=== PATIENT | male | born 1935 | race Asian ===

== ENCOUNTER 2018-07-25 05:37 | Inpatient (IN) | payer OTHER ==
[~2018-07-25] VITALS: Ht 162.6 cm; Wt 49.9 kg
[~2018-07-25 05:37] MED LIST: [UNRECOGNIZED DRUG - REMARK]
--- NOTE | 2018-07-25 05:37 | NUR ---
Patient BIBA ACLS, transferred to bed 4. RN evaluating patient at bedside.
[2018-07-25] MEDS ORDERED: NACL 0.9% 500 ML IV SCH (05:38)
[2018-07-25 05:39] VITALS: BP 149/64
--- NOTE | 2018-07-25 05:40 | NUR ---
PT BIBA FOR SOB. PT SON REPORTS SOB AND COUGH X3 MONTHS. [facility] GAVE DUO NEB ON ROUTE, PT ON 6 LITTERS O2 VIA MASK. DEEP RESPIRATIONS WITH USE OF ACCESSORY MUSCLES, EXPIRATORY WHEEZES AUDIBLE THROUGHOUT. PT DENIES CP, N/V/D, FEVER, OR PAIN AT THIS TIME. VSS. PT AAOX4 AND COOPERATIVE. ER MD TO SEE PT. WILL CONTINUE TO MONITOR. MEDHX:HTN
--- NOTE | 2018-07-25 05:47 | NUR ---
Dr. Dang evaluating patient at bedside.
--- NOTE | 2018-07-25 06:11 | NUR ---
XRAY AT BEDSIDE
[2018-07-25] MEDS ORDERED: MAG SULF 2000 MG/WATER PREMIX 50 ML IV ONE (06:15)
[2018-07-25] MEDS ORDERED: methylPREDNISolone SS 125 MG/2 ML VIAL IVP ONE (06:15)
[2018-07-25 06:26] LABS: BASOPHILS # (AUTO) 0.1 K/uL (0.00-0.22); BASOPHILS % (AUTO) 0.7 % (0.0-2.0); EOSINOPHILS # (AUTO) 2.1 K/uL (0-0.4); EOSINOPHILS % (AUTO) 18.2 % (0.0-4.0); HEMATOCRIT 45.8 % (36-52); HEMOGLOBIN 15.1 g/dL (12.0-18.0); LYMPHOCYTES # (AUTO) 3.5 K/uL (2.0-11.5); LYMPHOCYTES % (AUTO) 30.7 % (20.5-51.1); MEAN CORPUSCULAR HEMOGLOBIN 32 pg (27-31); MEAN CORPUSCULAR HGB CONC 33 g/dL (33-37); MEAN CORPUSCULAR VOLUME 97.9 fL (80-94); MONOCYTES # (AUTO) 1.3 K/uL (0.8-1.0); NEUTROPHILS # (AUTO) 4.5 K/uL (1.8-7.7); NEUTROPHILS % (AUTO) 39.4 % (42.2-75.2); PLATELET COUNT (AUTO) 315 K/uL (140-450); RED BLOOD CELL COUNT(AUTO) 4.68 MIL/uL (4.20-6.10); RED CELL DISTRIBUTION WIDTH 12.8 % (11.6-13.7); WHITE BLOOD COUNT (AUTO) 11.5 K/uL (4.8-10.8)
[2018-07-25 06:33] LABS: APPEARANCE,URINE CLEAR (CLEAR); BILIRUBIN,URINE NEGATIVE (NEGATIVE); BLOOD, URINE NEGATIVE (NEGATIVE); COLOR,URINE YELLOW (YELLOW); LEUKOCYTE ESTERASE ,URINE NEGATIVE (NEGATIVE); NITRITE, URINE NEGATIVE (NEGATIVE); UGLUCOSE NEGATIVE (NEGATIVE)
[2018-07-25 06:37] LABS: ANION GAP 8.1 (8-16); CARBON DIOXIDE 31.6 mmol/L (21-32); CHLORIDE 97 mmol/L (98-107); CREATININE 1.2 mg/dL (0.7-1.3); GLUCOSE 105 mg/dL (74-106); POTASSIUM 4.7 mmol/L (3.5-5.1); SODIUM SERUM 132 mmol/L (136-145); UREA NITROGEN, BLOOD 15 mg/dL (7-18)
[2018-07-25 06:39] LABS: PROTHROMBIN TIME 9.3 secs (10.8-13.4)
[2018-07-25] MEDS ORDERED: PIPERACILLIN/TAZOBACTAM 3.375 GM in DEXTROSE 5% 50 ML IV ONE (06:40)
[2018-07-25 06:43] LABS: ALBUMIN 4.1 g/dL (3.4-5.0); ASPARTATE AMINOTRANSFERASE 18 U/L (15-37); TOTAL BILIRUBIN 0.4 mg/dL (0.0-1.0)
--- NOTE | 2018-07-25 06:44 | NUR ---
PT O2 SAT AT 100% ON 6L VIA FACE MASK, NO ACCESORY MUSCLE USE WITH BREATHING, PT STILL HAS EXPIRATORY WHEEZES. TITRATING PT DOWN TO 4L O2 VIA NASAL CANULA, WILL CONTINUE TO MONITOR.
[2018-07-25] MEDS ORDERED: ALBUTEROL SULFATE/IPRATROPIU 3 ML SOL IH ONE (06:45)
--- NOTE | 2018-07-25 06:49 | NUR ---
Breathing treatment administered at bedside by respiratory therapist.
[2018-07-25] MEDS ORDERED: GABA100C PO (06:52)
[2018-07-25] MEDS ORDERED: PIPERACILLIN/TAZOBACTAM 3.375 GM VIAL IV ONE (06:52)
[2018-07-25] MEDS ORDERED: MECL-272 PO (06:52)
--- NOTE | 2018-07-25 06:55 | NUR ---
INSERTED 24 G IV ON PT L HAND TO INFUSE ZOSYN.
[2018-07-25 06:56] LABS: RBC,URINE 0-5 /HPF (0-5); WBC,URINE 0-5 /HPF (0-5)
--- NOTE | 2018-07-25 06:58 | NUR ---
FAMILY AT BEDSIDE. ORDERED BREATHING TREATMENT ADMINISTERED. TOLERATED TX WELL, NO ADVERSE SIDE EFFECTS. WILL CONTINUE TO MONITOR.
[2018-07-25] MEDS ORDERED: ACETAMINOPHEN 325 MG TAB PO PRN (07:00)
[2018-07-25] MEDS ORDERED: HYDROcodone/APAP 7.5/325 MG 1 TAB PO PRN (07:00)
[2018-07-25] MEDS ORDERED: ONDANSETRON 4 MG/2 ML VIAL IVP PRN (07:00)
--- NOTE | 2018-07-25 07:10 | NUR ---
recieved report from colt vieyra rn
--- NOTE | 2018-07-25 07:20 | NUR ---
PT TAKEN TO TELE FLOOR BY SUSHMA HUGO AND EMT LEE
--- NOTE | 2018-07-25 07:25 | NUR ---
Patient will be admitted to care of DR. YATES. Admited to TELE. Will go to room 110B. Belongings list completed. Report to SUSHMA MCGRATH.
[2018-07-25 07:30] VITALS: BP 124/61
--- NOTE | 2018-07-25 07:30 | NUR ---
RECEIVED BEDSIDE REPORT FROM ED RN. PT IN STABLE CONDITION. AMBULATORY WITHOUT ASSIST. DENIES PAIN AND DISCOMFORT. NO S/S DISTRESS. NO SOB. RESPIRATIONS EVEN AND UNLABORED. SATURATING 91% ON 2L NC. COARSE LUNG SOUNDS BILATERALLY. HEART RHYTHM REGULAR. ACTIVE BS IN ALL QUADRANTS. ABDOMEN SOFT AND NON-DISTENDED. SKIN INTACT. IV SITES PATENT AND ASYMPTOMATIC, INFUSING MAG RIDER NOW, WILL START ON IVF ORDERED. ALL SAFETY PRECAUTIONS IN PLACE, WILL CONTINUE TO MONITOR.
[2018-07-25 08:01] LABS: CHOL/HDL RATIO 2.6 (1-4.5); FREE T4 (FREE THYROXINE) 0.95 ng/dL (0.76-1.46); MAGNESIUM 1.8 mg/dL (1.8-2.4); PHOSPHORUS 3.8 mg/dL (2.5-4.9)
[2018-07-25] MEDS: NACL 0.9% 1,000 ML IV SCH (08:28)
[2018-07-25] MEDS: PANTOPRAZOLE 40 MG INJ VIAL IVP SCH (08:28)
[2018-07-25] MEDS: DOCUSATE SODIUM 100 MG GELCAP PO SCH ×2 (08:29→20:59)
[2018-07-25 09:36] LABS: THYROID STIMULATING HORMONE 2.74 uIU/mL (0.34-3.74)
--- NOTE | 2018-07-25 10:01 | NUR ---
CALLED AND LEFT MESSAGE FOR SON TO CALL ME BACK FOR ADMISSION QUESTIONS.
--- NOTE | 2018-07-25 10:36 | NUR ---
ASKED DR. GUZMAN FOR DIET ORDER.
[2018-07-25] MEDS ORDERED: ALBUTEROL SULFATE/IPRATROPIU 3 ML SOL IH PRN (10:55)
[2018-07-25] MEDS ORDERED: OMEP20TC12 PO (11:06)
[2018-07-25] MEDS ORDERED: CETI-32 PO (11:06)
[2018-07-25] MEDS ORDERED: ATEN50TA8 PO (11:06)
[2018-07-25] MEDS ORDERED: SIMV20TA1 PO (11:06)
--- NOTE | 2018-07-25 11:41 | NUR ---
PT RESTING IN BED, EYE OPEN SPONTANEOUSLY. NO C/O PAIN OR DISCOMFORT. WILL CONTINUE TO MONITOR.
[2018-07-25 12:00] VITALS: BP 119/59
[2018-07-25] MEDS ORDERED: PIPER/TAZO 3.375GM/D5W PREMIX 50 ML IV SCH (12:00)
[2018-07-25] MEDS: methylPREDNISolone SS 125 MG/2 ML VIAL IVP SCH ×2 (12:18→20:59)
[2018-07-25] MEDS: GABAPENTIN 100 MG CAP PO SCH ×2 (12:18→17:13)
[2018-07-25] MEDS: PIPER/TAZO 2.25GM/D5W PREMIX 50 ML IV SCH ×2 (12:18→17:13)
[2018-07-25] MEDS: ALBUTEROL SULFATE/IPRATROPIU 3 ML SOL IH SCH ×2 (13:04→19:25)
--- NOTE | 2018-07-25 13:21 | NUR ---
PATIENT ON 2L NC, PULSE OX SAT 95%. SCHEDULED BREATHING TREATMENT ADMINISTERED. TOLERATED TX WELL, NO ADVERSE SIDE EFFECTS. I.S. INSTRUCTION GIVEN TO PATIENT. PATIENT PERFORMED RETURN DEMONSTRATION WITH FAIR EFFORT. SPUTUM SPECIMEN CUP LEFT AT BEDSIDE. INSTRUCTED PATIENT TO SPONTANEOUSLY EXPECTORATE INTO CUP. NO RESPIRATORY DISTRESS NOTED. RETURNED PATIENT TO 2L NC. WILL CONTINUE TO MONITOR.
--- NOTE | 2018-07-25 13:44 | NUR ---
UTILIZED SLEEVE TURNER SERVICES #[id number] TO EXPLAIN SPUTUM SAMPLE COLLECTION TO PATIENT. PT VERBALIZED UNDERSTANDING. ATTEMPTED TO OBTAIN ADMISSION ASSESSMENT VIA SLEEVE TURNER SERVICES, HOWEVER PER SLEEVE TURNER #[id number], PT IS HARD OF HEARING AND CANNOT HEAR SLEEVE TURNER WELL ON THE PHONE. WILL CALL FAMILY MEMBER FOR ADMISSION ASSESSMENT.
--- NOTE | 2018-07-25 14:24 | NUR ---
ATTEMPTED TO REACH SON AGAIN VIA PHONE- NO ONE PICKED UP. LEFT ANOTHER MESSAGE FOR SON TO CALL ME BACK.
--- NOTE | 2018-07-25 15:16 | NUR ---
CALLED SON - NO ANSWER. WILL CONTINUE TO TRY TO REACH SON. Addendum: 07/25/18 at 1516 by Lexy Jamison Meng, RN REGARDING ADMISSION ASSESSMENT.
--- NOTE | 2018-07-25 15:59 | NUR ---
CALLED SON AT [phone]- NO ANSWER.
[2018-07-25 16:00] VITALS: BP 104/54
--- NOTE | 2018-07-25 17:55 | NUR ---
OBTAINED ADMISSION ASSESSMENT FROM SON NO AT BEDSIDE.
--- NOTE | 2018-07-25 19:28 | NUR ---
ENDORSED POC TO SERVICE SUPPORT REPRESENTATIVE RN. PT IN STABLE CONDITION.
--- NOTE | 2018-07-25 19:30 | NUR ---
RECEIVED PT IN STABLE CONDITION FROM AM NURSE. AWAKE,ALERT AND ORIENTED , SPEAKS CROATIAN. WITH NO SOB NOTED. ON O2 1L/NC. RESPIRATION EVEN AND UNLABORED. HAS IVF INFUSING WELL ON THE LT WRIST G#24. ,HL ON RT AC#20. NO C/O ANY PAIN NOR DISCOMFORT NOTED. WILL CONTINUE TO MONITOR.
[2018-07-25 19:45] VITALS: BP 115/54
--- NOTE | 2018-07-25 20:00 | NUR ---
PT O2 SAT AFTER THE BREATHING TREATMENT AND RT CHANGED O2 TO 2 L/NC. O2 SAT 96%.
[2018-07-25] MEDS: SIMVASTATIN 20 MG TAB PO SCH (21:00)
[2018-07-25] MEDS ORDERED: PNEUMOCOCCAL VACCINE 23 MCG/0.5 ML VIAL IMVAC PRN (22:00)
[2018-07-25] MEDS ORDERED: INFLUENZA VIRUS VACCINE QUAD 0.5 ML SYR IMVAC PRN (22:00)
--- NOTE | 2018-07-25 22:00 | NUR ---
MADE ROUNDS. PT ASLEEP NO S/S OF ANY DISTRESS NOR SOB NOTED.
[2018-07-26] VITALS (7 sets, daily range): BP systolic 94–119; BP diastolic 46–57
[2018-07-26] MEDS: PIPER/TAZO 2.25GM/D5W PREMIX 50 ML IV SCH ×5 (00:02→23:37)
--- NOTE | 2018-07-26 00:08 | NUR ---
AWAKE. VITAL SIGNS TAKEN. O2 SAT 94% WITH O2 2/NC. NO C/O ANY DISCOMFORT NOTED. WILL CONTINUE TO MONITOR.
--- NOTE | 2018-07-26 02:30 | NUR ---
MADE ROUNDS. PT AWAKE. NO C/O ANY DISCOMFORT NOR PAIN . NO SOB NOTED . WILL CONTINUE TO MONITOR.
[2018-07-26] MEDS: NACL 0.9% 1,000 ML IV SCH ×4 (03:00→23:33)
[2018-07-26] MEDS: methylPREDNISolone SS 125 MG/2 ML VIAL IVP SCH ×3 (04:33→20:28)
--- NOTE | 2018-07-26 05:06 | NUR ---
SPUTUM SPECIMEN COLLECTED FOR CULTURE. WILL SEND TO LAB.
--- NOTE | 2018-07-26 06:48 | NUR ---
PATIENT HAS BEEN SCREENED AND CATEGORIZED MODERATE NUTRITION RISK. PATIENT WILL BE SEEN WITHIN 3-5 DAYS OF ADMISSION. 07/28/18-07/30/18 JESUS MYLES MS, RDN
[2018-07-26 06:50] LABS: HEMATOCRIT 40.2 % (36-52); HEMOGLOBIN 13.3 g/dL (12.0-18.0); MEAN CORPUSCULAR HEMOGLOBIN 32 pg (27-31); MEAN CORPUSCULAR HGB CONC 33 g/dL (33-37); MEAN CORPUSCULAR VOLUME 97.8 fL (80-94); PLATELET COUNT (AUTO) 249 K/uL (140-450); RED BLOOD CELL COUNT(AUTO) 4.11 MIL/uL (4.20-6.10); RED CELL DISTRIBUTION WIDTH 12.8 % (11.6-13.7); WHITE BLOOD COUNT (AUTO) 13.7 K/uL (4.8-10.8)
[2018-07-26 07:06] LABS: ANION GAP 15.2 (8-16); CARBON DIOXIDE 23.2 mmol/L (21-32); CHLORIDE 97 mmol/L (98-107); CREATININE 1.3 mg/dL (0.7-1.3); GLUCOSE 137 mg/dL (74-106); POTASSIUM 4.4 mmol/L (3.5-5.1); SODIUM SERUM 131 mmol/L (136-145); UREA NITROGEN, BLOOD 25 mg/dL (7-18)
[2018-07-26 07:17] LABS: MAGNESIUM 1.9 mg/dL (1.8-2.4); PHOSPHORUS 3.3 mg/dL (2.5-4.9)
[2018-07-26] MEDS: ALBUTEROL SULFATE/IPRATROPIU 3 ML SOL IH SCH ×3 (07:17→19:10)
--- NOTE | 2018-07-26 07:20 | NUR ---
ENDORSED PT IN STABLE CONDITION TO AM NURSE.
--- NOTE | 2018-07-26 07:22 | NUR ---
RECEIVED BEDSIDE REPORT FROM CLEANING AND WASHING EQUIPMENT OPERATOR RN. PT IN STABLE CONDITION. AOX4. VITALS STABLE. AMBULATORY WITHOUT ASSIST. DENIES PAIN AND DISCOMFORT. NO S/S DISTRESS. NO SOB. RESPIRATIONS EVEN AND UNLABORED. HEART RHYTHM REGULAR. ACTIVE BS IN ALL QUADRANTS. ABDOMEN FLAT AND NON-DISTENDED. SKIN INTACT. IV SITES PATENT AND ASYMPTOMATIC, INFUSING IVF PER MD ORDERS. ALL SAFETY PRECAUTIONS IN PLACE, WILL CONTINUE TO MONITOR.
[2018-07-26 08:06] LABS: BASOPHILS % (MANUAL) 0 % (0-2); EOSINOPHILS % (MANUAL) 0 % (0-4); LYMPHOCYTES % (MANUAL) 10 % (20-46); MONOCYTES % (MANUAL) 2 % (5-12)
[2018-07-26] MEDS: PANTOPRAZOLE 40 MG INJ VIAL IVP SCH (08:12)
[2018-07-26] MEDS: GABAPENTIN 100 MG CAP PO SCH ×3 (08:13→16:48)
[2018-07-26] MEDS: MECLIZINE 25 MG TAB PO SCH (08:13)
[2018-07-26] MEDS: DOCUSATE SODIUM 100 MG GELCAP PO SCH ×2 (08:13→20:31)
[2018-07-26] MEDS: ATENOLOL 50 MG TAB PO SCH (08:13)
--- NOTE | 2018-07-26 10:29 | NUR ---
DISCUSSED POC WITH FAMILY MEMBER AT BEDSIDE. ANSWERED ALL QUESTIONS. FAMILY MEMBER VERBALIZED COMPLETE UNDERSTANDING. PATIENT STATES HE FEELS "MUCH BETTER".
--- NOTE | 2018-07-26 12:44 | NUR ---
PATIENT RESTING IN BED. NO C/O PAIN OR DISCOMFORT. INTERMITTENT COUGHING NOTED. NO SPUTUM.
[2018-07-26] MEDS ORDERED: DEXTROSE 50% 50 ML SYR IVP PRN (16:05)
[2018-07-26] MEDS: BLOOD GLUCOSE MONITORING 1 DEV DEV FS SCH ×2 (16:46→20:42)
[2018-07-26] MEDS: INSULIN LISPRO SLIDING SCALE 100 UNITS/ML VIAL SUBQ PRN ×2 (16:48→20:45)
--- NOTE | 2018-07-26 19:21 | NUR ---
RECEIVED PATIENT ON 1L NC. PULSE OX SAT 92%. SCHEDULED BREATHING TREATMENT ADMINISTERED. TOLERATED TX WELL, NO ADVERSE SIDE EFFECTS. PLACED PATIENT BACK ON NASAL CANNULA AT 1L. NO RESPIRATORY DISTRESS NOTED AT THIS TIME. WILL CONTINUE TO MONITOR.
--- NOTE | 2018-07-26 19:21 | NUR ---
ENDORSED POC TO GAMEROOM TECHNICIAN RN. PT IN STABLE CONDITION.
--- NOTE | 2018-07-26 19:25 | NUR ---
RECEIVED PT IN STABLE CONDITION FROM AM NURSE. PT IS AWAKE,ALERT AND ORIENTED X4. SPEAKS BOLIVIAN. ON TELE MONITOR. AMBULATORY TO THE BATHROOM. SKIN INTACT. WITH IVF INFUSING WELL ON THE LT WRIST G#24. HAS HL ON THE RT AC G20 CLEAR AND PATENT. BED ON LOWEST POSITION. CALL LIGHT AND URINAL PLACED WITHIN EASY REACH. FREQUENT ROUNDS NEEDED. NO C/O ANY PAIN AT THIS TIME. WILL CONTINUE TO MONITOR.
--- NOTE | 2018-07-26 20:00 | NUR ---
PT TELE MONITOR UNCONTROLLED AFIB. DR. MORGAN MADE AWARE. SEEN BY RESIDENT. WILL MAKE SOME ORDERS.
--- NOTE | 2018-07-26 20:30 | NUR ---
EKG DONE AT BEDSIDE. DR. MORGAN CAME TO SEE PT. C/O SOME DISCOMFORT ON THE CHEST. DR. MORGAN SAID TO GIVE NORCO.
[2018-07-26] MEDS: SIMVASTATIN 20 MG TAB PO SCH (20:32)
--- NOTE | 2018-07-26 21:05 | NUR ---
DUE TO C/O CHEST DISCOMFORT, TROPONIN DONE. RESULT IS NORMAL. WILL STILL CONTINUE TO MONITOR.
--- NOTE | 2018-07-26 21:15 | NUR ---
IVF NS CHANGED TO 80 ML/HR ORDERED.
--- NOTE | 2018-07-26 22:00 | NUR ---
MADE ROUNDS. PT IS ASLEEP. NO S/S OF ANY DISTRESS NOTED. WILL CONTINUE TO MONITOR.
--- NOTE | 2018-07-27 00:45 | NUR ---
DR. MORGAN ,RESIDENT HERE IN THE STATION. ASKED ABOUT PT BP 94/50. HE SAID TO INCREASE THE IVF NS TO 100ML/HR.
--- NOTE | 2018-07-27 02:00 | NUR ---
MADE ROUNDS. PT ASLEEP. NO DISTRESS NOTED.
[2018-07-27 04:37] VITALS: BP 94/58
[2018-07-27] MEDS: methylPREDNISolone SS 125 MG/2 ML VIAL IVP SCH (04:39)
[2018-07-27] MEDS: PIPER/TAZO 2.25GM/D5W PREMIX 50 ML IV SCH ×4 (05:37→23:25)
[2018-07-27] MEDS: BLOOD GLUCOSE MONITORING 1 DEV DEV FS SCH ×4 (05:40→20:58)
--- NOTE | 2018-07-27 05:58 | NUR ---
BLOOD SUGAR THIS AM RESULT 132. NO INSULIN NEEDED.
[2018-07-27 07:15] LABS: BASOPHILS % (AUTO) 0.1 % (0.0-2.0); LYMPHOCYTES # (AUTO) 1.1 K/uL (2.0-11.5); MEAN CORPUSCULAR HEMOGLOBIN 32 pg (27-31); MEAN CORPUSCULAR HGB CONC 33 g/dL (33-37); MEAN CORPUSCULAR VOLUME 96.6 fL (80-94); MONOCYTES # (AUTO) 0.9 K/uL (0.8-1.0); MONOCYTES % (AUTO) 4.5 % (1.7-9.3); NEUTROPHILS # (AUTO) 17.1 K/uL (1.8-7.7); NEUTROPHILS % (AUTO) 89.4 % (42.2-75.2); PLATELET COUNT (AUTO) 282 K/uL (140-450); RED BLOOD CELL COUNT(AUTO) 3.73 MIL/uL (4.20-6.10); RED CELL DISTRIBUTION WIDTH 12.9 % (11.6-13.7); WHITE BLOOD COUNT (AUTO) 19.1 K/uL (4.8-10.8)
[2018-07-27] MEDS: ALBUTEROL SULFATE/IPRATROPIU 3 ML SOL IH SCH ×3 (07:18→18:43)
--- NOTE | 2018-07-27 07:20 | NUR ---
ENDORSED PT IN STABLE CONDITION TO AM NURSE.
--- NOTE | 2018-07-27 07:21 | NUR ---
RECEIVED REPORT FROM ELECTRIC REFRIGERATOR SERVICER NURSE FOR CONTINUITY OF CARE. PT IN STABLE CONDITION. RESPIRATIONS EVEN AND UNLABORED. IV INTACT AND PATENT. SAFETY MEASURES IN PLACE AND PATENT. BED IN LOW POSITION. WILL CONTINUE TO MONITOR.
[2018-07-27 07:25] LABS: ANION GAP 12.9 (8-16); CHLORIDE 104 mmol/L (98-107); CREATININE 1.4 mg/dL (0.7-1.3); GLUCOSE 142 mg/dL (74-106); POTASSIUM 4.9 mmol/L (3.5-5.1); SODIUM SERUM 138 mmol/L (136-145); UREA NITROGEN, BLOOD 29 mg/dL (7-18)
[2018-07-27 07:30] LABS: MAGNESIUM 1.9 mg/dL (1.8-2.4); PHOSPHORUS 3.2 mg/dL (2.5-4.9)
[2018-07-27 08:00] VITALS: BP 108/58
[2018-07-27] MEDS: ATENOLOL 50 MG TAB PO SCH (09:00)
[2018-07-27] MEDS ORDERED: metFORMIN 850 MG TAB PO SCH (09:00)
[2018-07-27] MEDS: PANTOPRAZOLE 40 MG INJ VIAL IVP SCH (09:32)
[2018-07-27] MEDS: DOCUSATE SODIUM 100 MG GELCAP PO SCH ×2 (09:32→20:56)
[2018-07-27] MEDS: MECLIZINE 25 MG TAB PO SCH (09:32)
[2018-07-27] MEDS: GABAPENTIN 100 MG CAP PO SCH ×3 (09:32→16:40)
--- NOTE | 2018-07-27 09:35 | NUR ---
USED GENERAL DOC NICHOLAS [id number]. GAVE ORDERED DUE MEDICATIONS AT THIS TIME. PT TOLERATED WELL. ALL QUESTIONS ANSWERED AT THIS TIME. CALL LIGHT AT BEDSIDE. WILL CONTINUE TO MONITOR.
[2018-07-27] MEDS ORDERED: NACL 0.9% 500 ML IV SCH (10:00)
--- NOTE | 2018-07-27 10:15 | NUR ---
USED ARMAMENT REPAIRER TY [id number]. PT SIGNED CONSENT FORM AT THIS TIME FOR CT CHEST WITH CONTRAST. ALL QUESTIONS ANSWERED AT THIS TIME.
--- NOTE | 2018-07-27 11:00 | NUR ---
PT OFF UNIT AT THIS TIME FOR CT CHEST WITH CONTRAST. PT IN STABLE CONDITION.
--- NOTE | 2018-07-27 11:16 | NUR ---
PT BACK ON UNIT IN STABLE CONDITION. CALL LIGHT AT BEDSIDE. BED IN LOW POSITION. WILL CONTINUE TO MONITOR.
[2018-07-27 12:00] VITALS: BP 116/62
[2018-07-27] MEDS: NACL 0.9% 1,000 ML IV SCH ×2 (12:17→19:38)
--- NOTE | 2018-07-27 13:36 | NUR ---
PT LYING IN BED IN STABLE CONDITION, WATCHING TV. RESPIRATIONS EVEN AND UNLABORED. CALL LIGHT AT BEDSIDE. WILL CONTINUE TO MONITOR.
[2018-07-27] MEDS: methylPREDNISolone SS 40 MG/ML VIAL IVP SCH ×2 (13:47→20:57)
[2018-07-27 16:00] VITALS: BP 129/71
--- NOTE | 2018-07-27 17:23 | NUR ---
LAB CALLED SPUTUM SPECIMEN REJECTED. COLLECT NEW SAMPLE.
[2018-07-27] MEDS: INSULIN LISPRO SLIDING SCALE 100 UNITS/ML VIAL SUBQ PRN (18:28)
--- NOTE | 2018-07-27 19:33 | NUR ---
WILL ENDORSE TO SALES REPRESENTATIVE ELECTRIC SERVICE NURSE FOR CONTINUITY OF CARE. PT IN STABLE CONDITION.
--- NOTE | 2018-07-27 19:40 | NUR ---
RECEIVED FROM AM RN IN BED AWAKE AND SITTING UP IN BED. ABLE TO USE HANDS TO POINT AND CONVEY SIMPLE NEEDS. CALL LIGHT BESIDE HIM AND EXPLAINED BY HAND SIGNAL THAT SHE CAN PRESS THE NURSE PICTURED IN IT FOR HELP OR IF IN PAIN. "OK" NODDED HEAD TO SHOW HIS UNDERSTANDING. PER AM RN PT. WALKS WELL TO REST ROOM BY HIMSELF. INDEPENDENT. ON 02 AT 2LPM/NC. 02 SAT 93 %. DX. COPD.
[2018-07-27 20:21] VITALS: BP 119/74
[2018-07-27] MEDS: SIMVASTATIN 20 MG TAB PO SCH (20:56)
--- NOTE | 2018-07-27 21:55 | NUR ---
PT. SLEEPING AT THIS TIME. NO RESTLESSNESS NOTED. TELEMETRY MONITORING.
[2018-07-28] VITALS (7 sets, daily range): BP systolic 139–177; BP diastolic 73–92
--- NOTE | 2018-07-28 02:14 | NUR ---
PT. WOKE UP AND WAS COUGHING. PT. POINTING TO HIS STOMACH. USED [employer] DIRECTOR GROUP SALES/TRISTANIAN ( HY ) #[phone] . PT. STATED HIS INJECTION SITE FOR HEPARIN HURTS EVERY TIME AND IT HURTS HIM WHEN HE TOUCHES THE AREA. EXPLAINED PROS AND CONS OF THE HEPARIN 5.000 UNITS SQ ADMINISTERED . ASKED HIM IF HE WANTS ANY PAIN RELIEVER."NO, NOW I UNDERSTAND THE NEED FOR IT" PT. IS PRESENTLY GIVEN BREATHING TREATMENT. PER RT 02 SAT IS 91 TO 92 % WITH 2LPM/NC. PT. DX. COPD AND PNA. ALSO STATED THAT HE HURTS IN THE STOMACH WHEN HE COUGHS. ENCOURAGED TO RELAX . "OK" NO FURTHER COMPLAINTS DONE. PT. REFUSED MEDICATION OFFERED FOR PAIN.
--- NOTE | 2018-07-28 03:49 | NUR ---
SLEEPING. NO RESTLESSNESS. TELEMETRY MONITORING. CALL LIGHT WITH IN REACH.
--- NOTE | 2018-07-28 04:29 | NUR ---
PT. AWAKE AND WENT RESTROOM. INDEPENDENT. WATCHED PT. GO BACK TO BED WITH OUT ANY INCIDENT. ENCOURAGED TO TAKE A BREATH AND NOT HYPERVENTILATE RT BP UP. WHEN PT. RELAXED BP GOING DOWN. AT THIS TIME IT IS 160/80. WILL CHECK AGAIN IN AN HOUR. ENCOURAGED TO GO BACK TO SLEEP. "NODS HEAD TO ANSWER YES"
[2018-07-28] MEDS: NACL 0.9% 1,000 ML IV SCH ×2 (04:41→19:59)
[2018-07-28] MEDS: methylPREDNISolone SS 40 MG/ML VIAL IVP SCH ×3 (04:45→20:13)
[2018-07-28] MEDS: guaiFENesin 20 MG/ML UDC PO PRN (04:45)
--- NOTE | 2018-07-28 04:52 | NUR ---
PT. NOTED COUGHING . MEDICATED WITH PRN COUGH SYRUP. WENT BACK TO SLEEP AFTER.
[2018-07-28] MEDS: BLOOD GLUCOSE MONITORING 1 DEV DEV FS SCH ×4 (05:35→20:22)
[2018-07-28] MEDS: PIPER/TAZO 2.25GM/D5W PREMIX 50 ML IV SCH (05:35)
[2018-07-28] MEDS: ALBUTEROL SULFATE/IPRATROPIU 3 ML SOL IH SCH ×3 (07:06→18:50)
--- NOTE | 2018-07-28 07:17 | NUR ---
PT UNABLE TO PRODUCE SPUTUM AT THIS TIME
[2018-07-28 07:20] LABS: BASOPHILS % (AUTO) 0.1 % (0.0-2.0); EOSINOPHILS % (AUTO) 0.2 % (0.0-4.0); HEMATOCRIT 39.1 % (36-52); LYMPHOCYTES # (AUTO) 0.8 K/uL (2.0-11.5); LYMPHOCYTES % (AUTO) 4.5 % (20.5-51.1); MEAN CORPUSCULAR HEMOGLOBIN 32 pg (27-31); MEAN CORPUSCULAR HGB CONC 33 g/dL (33-37); MEAN CORPUSCULAR VOLUME 97.3 fL (80-94); MONOCYTES # (AUTO) 1.1 K/uL (0.8-1.0); MONOCYTES % (AUTO) 6.3 % (1.7-9.3); NEUTROPHILS % (AUTO) 88.9 % (42.2-75.2); PLATELET COUNT (AUTO) 278 K/uL (140-450); RED BLOOD CELL COUNT(AUTO) 4.01 MIL/uL (4.20-6.10); RED CELL DISTRIBUTION WIDTH 13.1 % (11.6-13.7)
--- NOTE | 2018-07-28 07:25 | NUR ---
RECEIVED BEDSIDE REPORT FROM LINOTYPIST NURSE. PT IS AOX4, SPEAKING CITIZEN OF [place] ONLY. ABLE TO MAKE NEEDS KNOWN AND FOLLOW COMMANDS. DENIES PAIN. WITH 2L/MIN NC. NO SIGNS OF DISTRESS NOTED. RESPIRATION IS EVEN AND UNLABORED. IV ON R AC 20G, NOT INFUSING AT THIS TIME. IV ON L HAND 24G, PATENT AND INTACT, INFUSING PER MD ORDER. PT IS CONTINENT. AND ABLE TO AMBULATE WITH STANDBY ASSISTANCE. DISCUSSED PLAN OF CARE WITH PATIENT, PATIENT NODDED HIS HEAD. SAFETY MEASURES IN PLACE. BED IN LOW POSITION, CALL LIGHT WITHIN REACH.
[2018-07-28 07:28] LABS: ANION GAP 14.1 (8-16); CARBON DIOXIDE 24.3 mmol/L (21-32); CHLORIDE 106 mmol/L (98-107); CREATININE 1.4 mg/dL (0.7-1.3); GLUCOSE 140 mg/dL (74-106); POTASSIUM 4.4 mmol/L (3.5-5.1); SODIUM SERUM 140 mmol/L (136-145); UREA NITROGEN, BLOOD 27 mg/dL (7-18)
[2018-07-28 07:35] LABS: MAGNESIUM 1.8 mg/dL (1.8-2.4); PHOSPHORUS 2.8 mg/dL (2.5-4.9)
[2018-07-28] MEDS ORDERED: AZITHROMYCIN 250 MG in DEXTROSE 5% 250 ML IV SCH (08:00)
[2018-07-28] MEDS: PANTOPRAZOLE 40 MG INJ VIAL IVP SCH (09:51)
[2018-07-28] MEDS: ATENOLOL 50 MG TAB PO SCH (09:57)
[2018-07-28] MEDS: MECLIZINE 25 MG TAB PO SCH (09:57)
[2018-07-28] MEDS: GABAPENTIN 100 MG CAP PO SCH ×3 (09:57→17:13)
[2018-07-28] MEDS: DOCUSATE SODIUM 100 MG GELCAP PO SCH ×2 (09:57→20:13)
--- NOTE | 2018-07-28 10:09 | NUR ---
ADMINISTERED MEDS PER MD ORDER. PT TOLERATED WELL. NO SIGNS OF DISTRESS NOTED.
[2018-07-28] MEDS ORDERED: AZITHROMYCIN 500 MG INJ VIAL IV ONE (11:00)
--- NOTE | 2018-07-28 12:18 | NUR ---
BP 177/92 AND PULSE IS 82. MD NOTIFIED.
[2018-07-28] MEDS: INSULIN LISPRO SLIDING SCALE 100 UNITS/ML VIAL SUBQ PRN ×2 (12:54→20:24)
[2018-07-28] MEDS ORDERED: methylPREDNISolone SS 40 MG/ML VIAL IVP SCH (13:00)
--- NOTE | 2018-07-28 13:05 | NUR ---
PT IS RESTING ON BED. NO SIGN OF DISTRESS NOTED. WILL CONTINUE TO MONITOR.
--- NOTE | 2018-07-28 13:46 | NUR ---
ASSISTED PT TO AMBULATE TO USE THE BATHROOM AND GOT BACK ON BED.
--- NOTE | 2018-07-28 16:34 | NUR ---
COLLECTED SPUTUM SPECIMEN AND DELIVERED TO LAB.
--- NOTE | 2018-07-28 17:00 | NUR ---
VISITORS ARE AT BEDSIDE AND TALKING TO PT. NO SIGNS OF DISTRESS NOTED.
--- NOTE | 2018-07-28 19:20 | NUR ---
ENDORSED PT AT BEDSIDE TO PLUSH CUTTER NURSE FOR CONTINUITY OF CARE. PT IS IN STABLE CONDITION.
--- NOTE | 2018-07-28 19:21 | NUR ---
REPORT RECEIVED FROM AM NURSE AT BEDSIDE. PT IN STABLE CONDITION. AAOX4. INTRODUCED SELF TO PT. BOARD UPDATED. NO COMPLAINTS OF PAIN. NO SOB. ON 2L O2 VIA NC. AFEBRILE. IV SITE L HAND 24G RUNNING NS@70ML/HR PATENT AND INTACT. R AC 20G SL PATENT AND INTACT. SKIN WARM, DRY, AND INTACT WITH NO OPEN WOUNDS. BED LOCKED IN LOW POSITION. CALL [place] WITHIN REACH. SAFETY PRECAUTIONS IN PLACE. ALL NEEDS MET AT THIS TIME.
--- NOTE | 2018-07-28 20:00 | NUR ---
SPUTUM CUP LEFT AT BEDSIDE AND INSTRUCTED PATIENT TO COUGH INTO CUP, SUSHMA RUVALCABA WAS PRESENT
[2018-07-28] MEDS: SIMVASTATIN 20 MG TAB PO SCH (20:13)
--- NOTE | 2018-07-28 20:13 | NUR ---
COLACE AND ZOCOR GIVEN PO. SOLUMEDROL GIVEN IVP. PT TOLERATED WELL. BS 176. 2 UNITS OF HUMALOG GIVEN.
--- NOTE | 2018-07-28 23:15 | NUR ---
PT SLEEPING BUT AROUSABLE. VS STABLE. NO S/S OF DISTRESS NOTED. WILL CONTINUE TO MONITOR.
[2018-07-29] VITALS: BP 167/83
--- NOTE | 2018-07-29 01:20 | NUR ---
PT SLEEPING BUT AROUSABLE. NO S/S OF DISTRESS NOTED. BREATHING EVEN, UNLABORED, AND WNL. WILL CONTINUE TO MONITOR.
--- NOTE | 2018-07-29 03:30 | NUR ---
PT SLEEPING COMFORTABLY BUT AROUSABLE. NO S/S OF DISTRESS NOTED. WILL CONTINUE TO MONITOR.
[2018-07-29 04:00] VITALS: BP 171/86
[2018-07-29] MEDS: methylPREDNISolone SS 40 MG/ML VIAL IVP SCH (04:05)
--- NOTE | 2018-07-29 04:05 | NUR ---
SOLUMEDROL GIVEN IVP. PT TOLERATED WELL.
--- NOTE | 2018-07-29 04:10 | NUR ---
PT BP 171/86. MD NOTIFIED. NEW ORDERS PUT IN.
--- NOTE | 2018-07-29 04:26 | NUR ---
ATENOLOL GIVEN FOR INCREASED BP OF 171/86. PT TOLERATED WELL.
[2018-07-29] MEDS ORDERED: ATENOLOL 25 MG TAB PO SCH (04:30)
[2018-07-29] MEDS: BLOOD GLUCOSE MONITORING 1 DEV DEV FS SCH ×3 (05:22→17:20)
--- NOTE | 2018-07-29 05:22 | NUR ---
BS 126. NO INSULIN COVERAGE NEEDED.
[2018-07-29] MEDS: guaiFENesin 20 MG/ML UDC PO PRN (07:01)
--- NOTE | 2018-07-29 07:01 | NUR ---
ROBITUSSIN GIVEN PO. PT TOLERATED WELL.
[2018-07-29] MEDS: ALBUTEROL SULFATE/IPRATROPIU 3 ML SOL IH SCH ×3 (07:13→19:00)
--- NOTE | 2018-07-29 07:20 | NUR ---
REPORT GIVEN TO AM NURSE AT BEDSIDE. PT IN STABLE CONDITION.
--- NOTE | 2018-07-29 07:21 | NUR ---
Report received from pm nurse Sidney. Pt resting in bed, awake, RT at bedside providing breathing tx. No signs of distress, respirations even & nonlabored. Call light within reach. L wrist IV intact & asymptomatic with ongoing IVF. Addendum: 07/29/18 at 1259 by Mary Acosta RN Clarification: IV on L hand, not L wrist.
[2018-07-29 07:52] VITALS: BP 182/89
[2018-07-29] MEDS: ATENOLOL 50 MG TAB PO SCH (07:52)
--- NOTE | 2018-07-29 07:52 | NUR ---
Dr. Barksdale notified of elevated BP. Pt resting in bed, awake, verbal in mongolian, FLACC 0, no coughing noted. Per physician, ok to give atenolol 50mg 0900 dose now, then reassess. Med given at this time.
[2018-07-29 07:58] LABS: BASOPHILS % (AUTO) 0.2 % (0.0-2.0); EOSINOPHILS # (AUTO) 0.1 K/uL (0-0.4); EOSINOPHILS % (AUTO) 0.4 % (0.0-4.0); HEMOGLOBIN 15.4 g/dL (12.0-18.0); LYMPHOCYTES % (AUTO) 6.6 % (20.5-51.1); MEAN CORPUSCULAR HEMOGLOBIN 33 pg (27-31); MEAN CORPUSCULAR HGB CONC 33 g/dL (33-37); MEAN CORPUSCULAR VOLUME 97.4 fL (80-94); MONOCYTES # (AUTO) 0.9 K/uL (0.8-1.0); MONOCYTES % (AUTO) 5.9 % (1.7-9.3); NEUTROPHILS # (AUTO) 12.7 K/uL (1.8-7.7); NEUTROPHILS % (AUTO) 86.9 % (42.2-75.2); PLATELET COUNT (AUTO) 313 K/uL (140-450); RED BLOOD CELL COUNT(AUTO) 4.73 MIL/uL (4.20-6.10); RED CELL DISTRIBUTION WIDTH 13.6 % (11.6-13.7); WHITE BLOOD COUNT (AUTO) 14.7 K/uL (4.8-10.8)
[2018-07-29] MEDS ORDERED: AZITHROMYCIN 250 MG in DEXTROSE 5% 250 ML IV SCH (08:00)
[2018-07-29 08:17] LABS: CHLORIDE 100 mmol/L (98-107); CREATININE 1.3 mg/dL (0.7-1.3); GLUCOSE 131 mg/dL (74-106); SODIUM SERUM 137 mmol/L (136-145); UREA NITROGEN, BLOOD 23 mg/dL (7-18)
[2018-07-29] MEDS: PANTOPRAZOLE 40 MG INJ VIAL IVP SCH (08:28)
[2018-07-29] MEDS: DOCUSATE SODIUM 100 MG GELCAP PO SCH (08:28)
[2018-07-29] MEDS: GABAPENTIN 100 MG CAP PO SCH ×3 (08:29→17:53)
[2018-07-29] MEDS: NACL 0.9% 1,000 ML IV SCH (08:29)
[2018-07-29] MEDS: MECLIZINE 25 MG TAB PO SCH (08:29)
[2018-07-29 08:42] VITALS: BP 157/90
[2018-07-29] MEDS ORDERED: cloNIDine 0.1 MG TAB PO PRN (10:55)
--- NOTE | 2018-07-29 11:26 | NUR ---
REVIEWED WITH DR MINH BEACH ORDER FOR EVALUATE FOR HOME O2; O2 SATURATION FOR SITTING STANDING AND WALKING MD TO REDIRECT ORDER TO PHYSICAL THERAPY
--- NOTE | 2018-07-29 11:33 | NUR ---
PER DR MINH BEACH REMOVE FROM SUPPLEMENTAL OXYGEN STATES "IF SATURATION BELOW 92% PLACE SUPPLEMENTAL OXYGEN BACK ON" RECORD FINDINGS
--- NOTE | 2018-07-29 11:54 | NUR ---
O2 sat monitored without supplemental O2. Pt O2sat = 87% in sitting position, RR 20/min even & nonlabored. O2sat = 84% in standing position for 2min, RR 20/min even & nonlabored. O2sat = 80% after walking 200ft, RR=24/min tachypneic. Pt assisted back to bed in high fowlers position, resumed O2 supp @ 2Lpm via n/c. O2sat increased to 90-92% after 2min of rest, RR 20/min even & nonlabored. Addendum: 07/29/18 at 1433 by Mary Acosta RN Addendum: Dr. Apolonia agarwal of findings.
[2018-07-29 12:00] VITALS: BP 143/72
--- NOTE | 2018-07-29 13:07 | NUR ---
Clinicals and face sheet faxed to [facility] fax # for home 02.
[2018-07-29] MEDS ORDERED: ALBU0.0912 INH (13:47)
[2018-07-29] MEDS ORDERED: ATEN50TA8 PO (13:47)
[2018-07-29] MEDS ORDERED: AZIT250T3 PO (13:47)
[2018-07-29] MEDS ORDERED: METH4TAB3 PO (15:07)
--- NOTE | 2018-07-29 15:50 | NUR ---
Informed Dr. Barksdale that we are still waiting for [facility] to call us back regarding the home .
--- NOTE | 2018-07-29 15:53 | NUR ---
Informed Yasmine FONTENOT and Dave ORDAZ to follow up the request for home portable 02 from [facility] and talk to Adeline.
[2018-07-29 16:00] VITALS: BP 160/84
--- NOTE | 2018-07-29 19:01 | NUR ---
PATIENT SITTING UP AND DRESSED, WIATING FOR HOME 02 COMPANY AND IS BEING DISCHARGED
--- NOTE | 2018-07-29 19:35 | NUR ---
O2 TANK & CONCENTRATOR DELIVERED TO PT'S ROOM. PT DISCHARGED AT THIS TIME, ACCOMPANIED BY SON WHO TRANSPORTED PT VIA PRIVATE CARE. PT LEFT UNIT VIA WHEELCHAIR, NO C/O DISCOMFORT. ALL BELONGINGS WITH PT UPON DEPARTURE.
== END 2018-07-29 19:35 | disposition home or self-care (01) | DRG 682 ==
LOC: MED 05:37 → MTU 07:00
PROVIDERS: ADMIT General Practice; ATTEND General Practice
PROC: 3E0234Z Introduction of Serum, Toxoid and Vaccine into Muscle, Percutaneous Approach (ICD-10-PCS; principal; 2018-07-29)
PROC: 3E02340 Introduction of Influenza Vaccine into Muscle, Percutaneous Approach (ICD-10-PCS; 2018-07-29)
DX: N17.9 Acute kidney failure, unspecified (principal); J18.9 Pneumonia, unspecified organism; J96.21 Acute and chronic respiratory failure with hypoxia; J44.1 Chronic obstructive pulmonary disease with (acute) exacerbation; E87.1 Hypo-osmolality and hyponatremia; D68.59 Other primary thrombophilia; I42.9 Cardiomyopathy, unspecified; R64 Cachexia; J44.0 Chronic obstructive pulmonary disease with (acute) lower respiratory infection; E11.65 Type 2 diabetes mellitus with hyperglycemia; E11.69 Type 2 diabetes mellitus with other specified complication; I48.91 Unspecified atrial fibrillation; I11.9 Hypertensive heart disease without heart failure; K21.9 Gastro-esophageal reflux disease without esophagitis; E78.5 Hyperlipidemia, unspecified; I49.3 Ventricular premature depolarization; Z87.891 Personal history of nicotine dependence; Z79.899 Other long term (current) drug therapy; Z23 Encounter for immunization
CPT/HCPCS: 36415; 36600; 71045; 71260; 80048; 80053; 81001; 82803; 82948; 83036; 83605; 83735; 83880; 84100; 84439; 84443; 84484; 85025; 85610; 85730; 87040; 87070; 87081; 87086; 87205; 87804; 90732; 93005; 93970; 94640; 96374; 99285; C9113; J0456; J1644; J1815; J2543; J2920; J2930; J3475; J7030; J7060; J7620; J8597; Q0092; Q9967

== ENCOUNTER 2018-08-15 09:07 | Emergency (ER) | payer OTHER ==
[~2018-08-15] VITALS: Ht 152.4 cm; Wt 50.8 kg
[~2018-08-15 09:07] MED LIST changes: +ALBU0.0912 INH; +ATEN50TA8 PO; +AZIT250T3 PO; +CETI-32 PO; +GABA100C PO; +MECL-272 PO; +METH4TAB3 PO; +OMEP20TC12 PO; +SIMV20TA1 PO; -[UNRECOGNIZED DRUG - REMARK]
[2018-08-15 09:14] VITALS: BP 141/69
--- NOTE | 2018-08-15 09:23 | NUR ---
PATIENT AMBULATED TO BED 03 AT THIS TIME.
--- NOTE | 2018-08-15 09:25 | NUR ---
PT BIB FAMILY TO THE ED WITH THE CHIEF C/O HEADACHE FOR 4 DAYS. DENIES ANY N/V OR DIZZINESS. PER FAMILY PT WAS ADMITTED HERE FOR PNA 3 WEEKS AGO. DENIES CP, SOB OR ANY OTHER PROBLEM AT THIS TIME. STATES HEADACHE OF 10/10 AT THIS TIME. PLACED ON MONITOR. VSS.
--- NOTE | 2018-08-15 09:38 | NUR ---
PT BEING SEEN BY ER AT THIS TIME.
[2018-08-15] MEDS ORDERED: ceFAZolin 1,000 MG VIAL IM ONE (09:45)
[2018-08-15] MEDS ORDERED: KETOROLAC 60 MG/2 ML VIAL IM ONE (09:45)
[2018-08-15] MEDS ORDERED: WATER STERILE 10 ML MC ONE (09:57)
[2018-08-15] MEDS ORDERED: ATOR40TA PO (10:23)
[2018-08-15] MEDS ORDERED: ASPI-1718 PO (10:23)
[2018-08-15] MEDS ORDERED: CELE200C PO (10:23)
[2018-08-15] MEDS ORDERED: TAMS0.4C96 PO (10:23)
[2018-08-15] MEDS ORDERED: LOSA100T1 PO (10:23)
[2018-08-15] MEDS ORDERED: LEVO5TAB12 PO (10:23)
[2018-08-15 10:37] VITALS: BP 124/85
--- NOTE | 2018-08-15 10:38 | NUR ---
DR. SANTAMARIA DISCHARGED THE PT.
== END 2018-08-15 10:38 | disposition home or self-care (01) ==
LOC: MED 09:07
DX: H60.12 Cellulitis of left external ear (principal); E11.9 Type 2 diabetes mellitus without complications; I10 Essential (primary) hypertension; E78.00 Pure hypercholesterolemia, unspecified; Z87.891 Personal history of nicotine dependence; Z79.82 Long term (current) use of aspirin; Z79.2 Long term (current) use of antibiotics; Z79.899 Other long term (current) drug therapy; Z88.8 Allergy status to other drugs, medicaments and biological substances; Z79.1 Long term (current) use of non-steroidal anti-inflammatories (NSAID)
CPT/HCPCS: 96372; 99283; J0690; J1885

== ENCOUNTER 2018-09-23 13:42 | Inpatient (IN) | payer OTHER ==
[~2018-09-23] VITALS: Ht 152.4 cm; Wt 68.5 kg
[~2018-09-23 13:42] MED LIST changes: +ASPI-1718 PO; +ATOR40TA PO; +CELE200C PO; +LEVO5TAB12 PO; +LOSA100T1 PO; +TAMS0.4C96 PO
--- NOTE | 2018-09-23 13:42 | NUR ---
Patient BIBA ACLS, transferred to bed 10. RN evaluating patient at bedside.
[2018-09-23 13:50] VITALS: BP 84/42
--- NOTE | 2018-09-23 13:50 | NUR ---
BIB [facility] WITH HIS SON FROM HOME W/ C/O GEN WEAKNESS X 1 WK W/ LOW BP TOOK HIS BP MED EARLIER TODAY HX; HTN RX; TAMSULOSIN, LOSARTAN --
[2018-09-23] MEDS ORDERED: NACL 0.9% 1,000 ML IV SCH ×3 (13:52→15:57)
--- NOTE | 2018-09-23 13:56 | NUR ---
monogram technician at bedside.
[2018-09-23] MEDS ORDERED: cefTRIAXone 1,000 MG VIAL ONE (14:19)
[2018-09-23 14:33] LABS: BASOPHILS % (AUTO) 0.3 % (0.0-2.0); EOSINOPHILS # (AUTO) 0.3 K/uL (0-0.4); EOSINOPHILS % (AUTO) 2.8 % (0.0-4.0); LYMPHOCYTES # (AUTO) 1.8 K/uL (2.0-11.5); LYMPHOCYTES % (AUTO) 17.7 % (20.5-51.1); MEAN CORPUSCULAR HEMOGLOBIN 35 pg (27-31); MEAN CORPUSCULAR HGB CONC 34 g/dL (33-37); MEAN CORPUSCULAR VOLUME 101.9 fL (80-94); MONOCYTES # (AUTO) 0.9 K/uL (0.8-1.0); MONOCYTES % (AUTO) 8.4 % (1.7-9.3); NEUTROPHILS # (AUTO) 7.2 K/uL (1.8-7.7); NEUTROPHILS % (AUTO) 70.8 % (42.2-75.2); PLATELET COUNT (AUTO) 259 K/uL (140-450); RED BLOOD CELL COUNT(AUTO) 1.51 MIL/uL (4.20-6.10); RED CELL DISTRIBUTION WIDTH 14.6 % (11.6-13.7); WHITE BLOOD COUNT (AUTO) 10.2 K/uL (4.8-10.8)
[2018-09-23 14:41] LABS: HEMOGLOBIN 5.2 g/dL (12.0-18.0)
[2018-09-23 14:42] LABS: HEMATOCRIT 15.4 % (36-52)
[2018-09-23 14:52] LABS: APPEARANCE,URINE CLEAR (CLEAR); BILIRUBIN,URINE NEGATIVE (NEGATIVE); BLOOD, URINE NEGATIVE (NEGATIVE); COLOR,URINE YELLOW (YELLOW); LEUKOCYTE ESTERASE ,URINE TRACE (NEGATIVE); NITRITE, URINE NEGATIVE (NEGATIVE); PH,URINE 6.5 (5.0-9.0); UGLUCOSE NEGATIVE (NEGATIVE)
[2018-09-23] MEDS ORDERED: NAPR-54 PO (15:03)
[2018-09-23] MEDS ORDERED: LOSA100T1 PO (15:03)
[2018-09-23 15:09] LABS: RBC,URINE 0 /HPF (0-5); WBC,URINE 0-5 /HPF (0-5)
[2018-09-23 15:29] LABS: CARBON DIOXIDE 24.1 mmol/L (21-32); CHLORIDE 105 mmol/L (98-107); GLUCOSE 124 mg/dL (74-106); POTASSIUM 4.1 mmol/L (3.5-5.1); SODIUM SERUM 140 mmol/L (136-145)
[2018-09-23 15:30] LABS: ALBUMIN 2.7 g/dL (3.4-5.0); ASPARTATE AMINOTRANSFERASE 12 U/L (15-37); CREATININE 1.2 mg/dL (0.7-1.3); TOTAL BILIRUBIN 0.2 mg/dL (0.0-1.0); UREA NITROGEN, BLOOD 50 mg/dL (7-18)
[2018-09-23] MEDS ORDERED: NACL 0.9% 1,000 ML IV ONE (15:55)
[2018-09-23] MEDS ORDERED: ONDANSETRON 4 MG/2 ML VIAL IM/IVP PRN (16:00)
[2018-09-23] MEDS ORDERED: HYDROcodone/APAP 7.5/325 MG 1 TAB PO PRN (16:00)
[2018-09-23] MEDS ORDERED: ACETAMINOPHEN 325 MG TAB PO PRN (16:00)
[2018-09-23] MEDS ORDERED: DOCUSATE SODIUM 100 MG GELCAP PO PRN (16:00)
--- NOTE | 2018-09-23 16:20 | NUR ---
LAB. CALLED BLOOD IS READY FOR TRANSFUSION.
--- NOTE | 2018-09-23 16:25 | NUR ---
GILBERT CUMMINS NURSE FROM TELEMETRY ASSIGNED BED TO [id number]. GILBERT AGREED AND OK TO START BLOOD TRANSFUSION IN TELEMETRY.
--- NOTE | 2018-09-23 16:30 | NUR ---
PATIENT TO THE FLOOR. BLOOD BANK MADE AWARE PATIENTS ROOM NUMBER. SPOKE TO
--- NOTE | 2018-09-23 16:35 | NUR ---
RECEIVED REPORT FROM ED RN. PT IN STABLE CONDITION. DENIES PAIN AND DISCOMFORT. TACHYCARDIC ON TELE. LUNGS CTA. ABD SOFT AND FLAT. IV SITE PATENT AND ASYMPTOMATIC, INFUSING NS. WILL PLACE ON FALL RISK PRECAUTIONS. EXPLAINED POC TO SON AT BEDSIDE- PT PREFERS SON TO TRANSLATE. ALL SAFETY PRECAUTIONS IN PLACE, WILL CONTINUE TO MONITOR.
[2018-09-23 16:45] LABS: CHOL/HDL RATIO 3.9 (1-4.5); FREE T4 (FREE THYROXINE) 0.9 ng/dL (0.76-1.46); MAGNESIUM 1.8 mg/dL (1.8-2.4); PHOSPHORUS 2.1 mg/dL (2.5-4.9); THYROID STIMULATING HORMONE 1.05 uIU/mL (0.34-3.74)
[2018-09-23 17:05] VITALS: BP 115/60
--- NOTE | 2018-09-23 17:18 | NUR ---
STARTED BLOOD TRANSFUSION. WILL CONTINUE TO MONITOR CLOSELY.
[2018-09-23] MEDS: DEXT 5% / NACL 0.45% 1,000 ML IV SCH (17:35)
[2018-09-23] MEDS ORDERED: CELECOXIB 100 MG CAP PO PRN (17:50)
[2018-09-23] MEDS ORDERED: NAPROXEN 500 MG TAB PO PRN (17:50)
[2018-09-23] MEDS ORDERED: PANTOPRAZOLE 40 MG INJ VIAL IVP SCH (18:20)
--- NOTE | 2018-09-23 19:15 | NUR ---
RECEIVED REPORT AM NURSE AT BEDSIDE. PT A, O X 4. SINHALA SPEAKING,W/ ONGOING BLOOD TRANSFUSION, ON L HAND G 20, PATENT AND BLOOD INFUSING WELL. DENIES PAIN AND DISCOMFORT. TACHYCARDIC ON TELE. POC REVIEWED. ABD SOFT AND FLAT. ON FALL RISK PRECAUTIONS. ALL SAFETY PRECAUTIONS IN PLACE, WILL CONTINUE TO MONITOR. Addendum: 09/23/18 at 1930 by Gretta Dixon RN PLS DELETE NOTE. CHANGE TIME
--- NOTE | 2018-09-23 19:25 | NUR ---
ENDORSED POC TO HOTEL NIGHT AUDITOR RN. PT IN STABLE CONDITION. ENDORSED TO ADMIN PROTONIX IVP.
--- NOTE | 2018-09-23 19:26 | NUR ---
RECEIVED REPORT AM NURSE AT BEDSIDE. PT A, O X 4. ETHIOPIAN SPEAKING,W/ ONGOING BLOOD TRANSFUSION, ON L HAND G 20, PATENT AND BLOOD INFUSING WELL. DENIES PAIN AND DISCOMFORT. TACHYCARDIC ON TELE. POC REVIEWED. ABD SOFT AND FLAT. ON FALL RISK PRECAUTIONS. ALL SAFETY PRECAUTIONS IN PLACE, WILL CONTINUE TO MONITOR.
--- NOTE | 2018-09-23 19:27 | NUR ---
CAROTID USD ONGOING AT BEDSIDE. PT TOLERATING WELL.NOP COMPLAINTS AT THIS TIME. WILL CONTINUE TO MONITOR
[2018-09-23 20:00] VITALS: BP 111/64
--- NOTE | 2018-09-23 21:09 | NUR ---
LAB AT BEDSIDE, TAKING PT'S BLOOD WORKS AND TROPONIN LEVEL.
[2018-09-23 21:18] LABS: BASOPHILS % (AUTO) 0.3 % (0.0-2.0); EOSINOPHILS # (AUTO) 0.2 K/uL (0-0.4); EOSINOPHILS % (AUTO) 2.2 % (0.0-4.0); LYMPHOCYTES # (AUTO) 2.3 K/uL (2.0-11.5); MEAN CORPUSCULAR HEMOGLOBIN 32 pg (27-31); MEAN CORPUSCULAR HGB CONC 34 g/dL (33-37); MEAN CORPUSCULAR VOLUME 94.8 fL (80-94); MONOCYTES # (AUTO) 1.1 K/uL (0.8-1.0); MONOCYTES % (AUTO) 10.4 % (1.7-9.3); NEUTROPHILS # (AUTO) 6.7 K/uL (1.8-7.7); NEUTROPHILS % (AUTO) 65.1 % (42.2-75.2); PLATELET COUNT (AUTO) 232 K/uL (140-450); RED BLOOD CELL COUNT(AUTO) 2.06 MIL/uL (4.20-6.10); RED CELL DISTRIBUTION WIDTH 17.6 % (11.6-13.7); WHITE BLOOD COUNT (AUTO) 10.3 K/uL (4.8-10.8)
--- NOTE | 2018-09-23 21:22 | NUR ---
RECEIVED CRITICAL READING OF HGB 6.6 AND HCT 19.5. INFORMED DR. WILLARD. TO GIVE THE 2ND UNIT OF BLOOD. WILL CARRY OUT
[2018-09-23 21:23] LABS: HEMATOCRIT 19.5 % (36-52); HEMOGLOBIN 6.6 g/dL (12.0-18.0)
[2018-09-23] MEDS: SODIUM PHOS / POTASSIUM PHOS 1 PKT PDR PO SCH (21:33)
--- NOTE | 2018-09-23 21:45 | NUR ---
PT C/O PAIN ON THE RIGHT WRIST G 20. WILL REINSERT ANOTHER LINE. Addendum: 09/23/18 at 2308 by Gretta Dioxn RN AMEND TO LEFT WRIST
--- NOTE | 2018-09-23 22:00 | NUR ---
PT STARTED ON ANOTHER LINE ON THE R FOREARM G 22, PATENT AND INTACT.
--- NOTE | 2018-09-23 22:20 | NUR ---
VITALS TAKEN INITIALLY BEFORE BLOOD TRANSFUSION : 98.2; 101; 18; 115/55, 0 PAIN; 91% O2 SAT.
--- NOTE | 2018-09-23 22:48 | NUR ---
STARTED BLOOD TRANFUSION
--- NOTE | 2018-09-23 22:48 | NUR ---
BLOOD WITHDRAWN FROM THE LAB; RELEASED BY TISSUE PACKER Addendum: 09/23/18 at 2313 by Gretta Dixon RN WRONG TIME ABOVE. PLS AMEND TO 2240 WITHDRAWN FROM LAB
--- NOTE | 2018-09-23 23:02 | NUR ---
VITALS TAKEN 15 MINS AFTER BLOOD TRANSFUSION : 98.5, 104, 18, 117/54, 95%
[2018-09-24] VITALS: BP 129/61
[2018-09-24 00:04] LABS: BARBITURATE, URINE NEG. ng/ml (NEG <=200); BENZODIAZEPINE, URINE NEG. ng/mL (NEG <=200); CANNABINOID, URINE NEG. ng/mL (NEG <=50); COCAINE, URINE NEG. ng/mL (NEG <=300); OPIATE, URINE NEG. ng/mL (NEG <=2000); PHENCYCLIDINE SCREEN,URINE NEG. ng/mL (NEG <=25)
[2018-09-24] MEDS: FUROSEMIDE 20 MG TAB PO SCH ×2 (00:55→05:06)
[2018-09-24] MEDS: ACETAMINOPHEN 325 MG TAB PO SCH ×3 (00:55→08:00)
--- NOTE | 2018-09-24 01:41 | NUR ---
FINISHED THE 2ND RBC UNIT. VITAL SIGNS 98.0,95,19, 117/60, 94% 02 SAT
[2018-09-24 02:22] LABS: HEMATOCRIT 22.9 % (36-52); HEMOGLOBIN 7.9 g/dL (12.0-18.0)
--- NOTE | 2018-09-24 02:59 | NUR ---
INFORMED DR. BEACH ON THE LATEST H AND H. 22.9 AND 7.9; SAID TO HOLD THE 3RD UNIT FOR NOW. (PARAMETERS OF BLOOD TRANSFUSION , 22 HCT)
--- NOTE | 2018-09-24 03:58 | NUR ---
PT VITALS ARE: BP 146/56. HR 94; 95%; 19; 0/10, 97.5 Addendum: 09/24/18 at 0600 by Gretta Dixon RN PT CHANGE TIME TO 0503AM. PT WAS BACK FROM RADIOLOGY
[2018-09-24 04:00] VITALS: BP 146/56
[2018-09-24] MEDS: DEXT 5% / NACL 0.45% 1,000 ML IV SCH ×2 (04:24→19:14)
--- NOTE | 2018-09-24 04:44 | NUR ---
PT TRANSPORTED FOR CT HEAD W/O CONTRAST . PT W/ VITALS OF T 97.5 146/ 56, 94, O2 SAT 95% , 19, 0/10 PAIN
--- NOTE | 2018-09-24 05:02 | NUR ---
CAME BACK FROM RADIOLOGY CT HEAD. WILL MEDICATE SOON PT FINISHED BATHROOM NEEDS. 1 BOWEL MVT NOTED
--- NOTE | 2018-09-24 06:00 | NUR ---
PRESENT VITALS ARE 112/68, 93,85,19, 95% 0/10 PAIN
--- NOTE | 2018-09-24 06:41 | NUR ---
PT AWAKE, ALERT O X 4, PT IN STABLE CONDITION. WILL ENDORSE TO NEXT SHIFT FOR CONTINUITY OF CARE.PT TRANSFERRED TO 127 A.
[2018-09-24 06:51] LABS: MAGNESIUM 1.7 mg/dL (1.8-2.4); PHOSPHORUS 2.4 mg/dL (2.5-4.9)
--- NOTE | 2018-09-24 06:59 | NUR ---
RECEIVED FROM LAB CRITICAL RESULT; INFORMED LACTIC ACID 2.7. ACKNOWLEDGED BY NO ORDERS YET AT THIS TIME.
[2018-09-24 07:00] LABS: ANION GAP 14.1 (8-16); CARBON DIOXIDE 23.7 mmol/L (21-32); CHLORIDE 109 mmol/L (98-107); CREATININE 1.3 mg/dL (0.7-1.3); GLUCOSE 123 mg/dL (74-106); POTASSIUM 3.8 mmol/L (3.5-5.1); SODIUM SERUM 143 mmol/L (136-145); UREA NITROGEN, BLOOD 45 mg/dL (7-18)
[2018-09-24 07:19] LABS: BASOPHILS % (AUTO) 0.3 % (0.0-2.0); EOSINOPHILS # (AUTO) 0.8 K/uL (0-0.4); EOSINOPHILS % (AUTO) 5.3 % (0.0-4.0); HEMATOCRIT 26.1 % (36-52); HEMOGLOBIN 8.9 g/dL (12.0-18.0); LYMPHOCYTES # (AUTO) 3.7 K/uL (2.0-11.5); LYMPHOCYTES % (AUTO) 25.7 % (20.5-51.1); MEAN CORPUSCULAR HEMOGLOBIN 32 pg (27-31); MEAN CORPUSCULAR HGB CONC 34 g/dL (33-37); MEAN CORPUSCULAR VOLUME 93.5 fL (80-94); MONOCYTES # (AUTO) 1.4 K/uL (0.8-1.0); MONOCYTES % (AUTO) 9.5 % (1.7-9.3); NEUTROPHILS # (AUTO) 8.6 K/uL (1.8-7.7); NEUTROPHILS % (AUTO) 59.2 % (42.2-75.2); PLATELET COUNT (AUTO) 262 K/uL (140-450); RED CELL DISTRIBUTION WIDTH 16.5 % (11.6-13.7); WHITE BLOOD COUNT (AUTO) 14.6 K/uL (4.8-10.8)
--- NOTE | 2018-09-24 07:40 | NUR ---
PATIENT WAS AWAKE, ALERT. RESPIRATION EVEN, UNLABOR ON ROOM AIR. SKIN DRY AND WARM. IV PATENT AND INTACT. DENIED PAIN, SOB, ADMITTED HAVING GENERALIZED WEAKNESS. PLAN OF CARE WAS DISCUSSED WITH PATIENT. BED AT LOW POSITION, SIDE RAILS UP. CALL LIGHT WITHIN REACH. MD WAS AT BEDSIDE
[2018-09-24 08:00] VITALS: BP 121/53
--- NOTE | 2018-09-24 08:22 | NUR ---
PATIENT HAS BEEN SCREENED AND CATEGORIZED HIGH NUTRITION RISK. PATIENT WILL BE SEEN WITHIN 1-2 DAYS OF ADMISSION. 09/24/18-09/25/[address]
[2018-09-24] MEDS: PANTOPRAZOLE 40 MG INJ VIAL IVP SCH (08:51)
[2018-09-24] MEDS: SODIUM PHOS / POTASSIUM PHOS 1 PKT PDR PO SCH ×2 (08:51→21:01)
[2018-09-24] MEDS: ATORVASTATIN 20 MG TAB PO SCH (08:52)
[2018-09-24] MEDS: LACTOBACILLUS RHAMNOSUS GG 1 EACH CAP PO SCH (08:52)
[2018-09-24] MEDS: TAMSULOSIN 0.4 MG CAP PO SCH (08:52)
[2018-09-24] MEDS ORDERED: MECLIZINE 25 MG TAB PO SCH (09:00)
[2018-09-24] MEDS ORDERED: LACTOBACILLUS RHAMNOSUS GG 1 EACH CAP PO SCH ×2 (09:00)
--- NOTE | 2018-09-24 10:00 | NUR ---
PATIENT WAS SLEEPING COMFORTABLY. RESPIRATION EVEN, UNLABOR ON ROOM AIR. NO DISTRESS NOTED AT THIS TIME
[2018-09-24] MEDS ORDERED: MAGNESIUM OXIDE 400 MG TAB PO SCH (10:30)
[2018-09-24 11:57] LABS: BASOPHILS # (AUTO) 0.1 K/uL (0.00-0.22); BASOPHILS % (AUTO) 0.8 % (0.0-2.0); EOSINOPHILS # (AUTO) 0.5 K/uL (0-0.4); EOSINOPHILS % (AUTO) 4.8 % (0.0-4.0); HEMATOCRIT 23.2 % (36-52); HEMOGLOBIN 8.1 g/dL (12.0-18.0); LYMPHOCYTES # (AUTO) 1.7 K/uL (2.0-11.5); LYMPHOCYTES % (AUTO) 16.2 % (20.5-51.1); MEAN CORPUSCULAR HEMOGLOBIN 33 pg (27-31); MEAN CORPUSCULAR HGB CONC 35 g/dL (33-37); MEAN CORPUSCULAR VOLUME 92.6 fL (80-94); MONOCYTES # (AUTO) 0.9 K/uL (0.8-1.0); MONOCYTES % (AUTO) 8.4 % (1.7-9.3); NEUTROPHILS # (AUTO) 7.5 K/uL (1.8-7.7); NEUTROPHILS % (AUTO) 69.8 % (42.2-75.2); PLATELET COUNT (AUTO) 238 K/uL (140-450); RED BLOOD CELL COUNT(AUTO) 2.51 MIL/uL (4.20-6.10); RED CELL DISTRIBUTION WIDTH 16.3 % (11.6-13.7); WHITE BLOOD COUNT (AUTO) 10.7 K/uL (4.8-10.8)
[2018-09-24 12:00] VITALS: BP 106/56
--- NOTE | 2018-09-24 12:10 | NUR ---
Late entry. Confirmed with RN that 1000 ml 0.9 NS IV bolus started at 1400 and completed at 1500. Another 0.9 NS IV bolus began at 1558 and continued to infuse at transfer with a dc time in the ED at 1630. Rocephin 1GM IVPB was started at 1426 and completed at 1500
[2018-09-24 12:18] LABS: T4 (THYROXINE) 5.6 ug/dL (4.5 - 12.0)
[2018-09-24 12:20] LABS: TRANSFERRIN 182 mg/dL (200 - 370)
--- NOTE | 2018-09-24 12:29 | NUR ---
PATIENT WAS RESTING COMFORTABLY. RESPIRATION EVEN, UNLABOR ON ROOM AIR. DENIED PAIN, N/V AT THIS TIME. NO DISTRESS NOTED. CALL LIGHT WITHIN REACH. DIETITIAN WAS AT BEDSIDE
--- NOTE | 2018-09-24 14:00 | NUR ---
PATIENT WAS SLEEPING COMFORTABLY. RESPIRATION EVEN, UNLABOR ON ROOM AIR. NO DISTRESS NOTED AT THIS TIME
--- NOTE | 2018-09-24 14:53 | NUR ---
09/24/18 RD INITIAL ASSESSMENT COMPLETED PLEASE REFER TO NUTRITION ASSESSMENT UNDER CARE ACTIVITY FOR ESTIMATED NUTRITIONAL NEEDS. 1. CONTINUE NPO MEDICALLY NECESSARY 2. WHEN PATIENT IS STABLE TO ADVANCE DIET CONSIDER A SWALLOW EVALUATION 3. RECOMMEND ENSURE BID WHEN PATIENT IS STABLE FOR PO INTAKE 4. RD TO FOLLOW-UP 2-3 DAYS, HIGH RISK NICOLAS DAUGHERTY, RD
--- NOTE | 2018-09-24 15:00 | NUR ---
PATIENT WAS TRANSFERRED TO OR. PATIENT IS STABLE AT THIS TIME
[2018-09-24] MEDS ORDERED: fentaNYL 0.05 MG/ML VIAL ONE (15:09)
[2018-09-24] MEDS ORDERED: MIDAZOLAM 2 MG/2 ML VIAL ONE ×2 (15:09)
[2018-09-24] MEDS ORDERED: diphenhydrAMINE 50 MG/ML VIAL ONE (15:09)
[2018-09-24 16:00] VITALS: BP 100/55
[2018-09-24] MEDS ORDERED: BOWEL EVACUANT DRINK 4,000 ML PDS PO SCH (16:00)
[2018-09-24] MEDS ORDERED: MIDAZOLAM 2 MG/2 ML VIAL IVP ONE (16:15)
[2018-09-24] MEDS ORDERED: fentaNYL 0.05 MG/ML VIAL IVP ONE (16:15)
--- NOTE | 2018-09-24 16:15 | NUR ---
PATIENT WAS TRANSFERRED BACK FROM OR. REPORT WAS GIVEN AT BEDSIDE. IVF WAS RESUMED. VS WAS TAKEN. PATIENT WAS DROWSY, ABLE TO ANSWER QUESTIONS APPROPRIATELY. DENIED PAIN AT THIS TIME. CALL LIGHT WITHIN REACH
[2018-09-24] MEDS: LACTULOSE 20 GM/30 ML UDC PO SCH (16:57)
[2018-09-24] MEDS: SENNA 8.6 MG TAB PO SCH ×2 (16:58→21:02)
--- NOTE | 2018-09-24 18:00 | NUR ---
PATIENT WAS AWAKE, ALERT, EATING DINNER COMFORTABLY. RESPIRATION EVEN, UNLABOR ON ROOM AIR. IV PATENT AND INTACT. NO DISTRESS NOTED AT THIS TIME
--- NOTE | 2018-09-24 19:17 | NUR ---
ENDORSEMENT GIVEN TO BRIQUETTE MAKER NURSE. PATIENT IS STABLE AT THIS TIME
--- NOTE | 2018-09-24 19:20 | NUR ---
RECEIVED PT IN STABLE CONDITION FROM AM NURSE. AWAKE, ALERT AND ORIENTED X4. ESTONIAN SPEAKING. ON TELE MONITOR. DENIES ANY DISCOMFORT NOR PAIN NOTED. HAS IVF INFUSING WELL ON THE RT HAND G#22. HL ON THE LT WRIST G#20. CLEAR AND PATENT. PT COR COLONOSCOPY TOMORROW. TAKING ORAL PREP AT THIS TIME. STOOL OUTPUT STILL BLACK,LIQUID. ENCOURAGED TO KEEP ON DRINKING THE PREP . BED ON LOW POSITION. SIDE RAILS UP X2. CALL LIGHT AND URINAL WITHIN EASY REACH. WITH BSC FOR PT WILL BE GOING BATHROOM A LOT FOR THE NIGHT . PT AWARE ABOUT THE PROCEDURE FOR TOMORROW. WILL CONTINUE TO MONITOR.
[2018-09-24 20:00] VITALS: BP 117/56
--- NOTE | 2018-09-24 20:09 | NUR ---
HAD A BOWEL MOVEMENT .STILL BLACK LIQUID STOOL. WITH STANDBY ASSISTANCE AND HAVE THE PREP READY TO DRINK . SO FAR PT TOLERATING IT.
[2018-09-24 20:25] LABS: FOLIC ACID > 20.00 ng/mL (>3.0)
--- NOTE | 2018-09-24 21:30 | NUR ---
PT HAD X2 STOOL, COLOR IS DARK GREEN AND YELLOWISH LIQUID. STILL TAKING GOLYTELY.
--- NOTE | 2018-09-24 23:00 | NUR ---
UP AGAIN TO BSC.STOOL OUTPUT YELLOWISH IN COLOR, LIQUID WITH LITTLE SOLIDS.
[2018-09-25] VITALS (7 sets, daily range): BP systolic 92–142; BP diastolic 44–70
--- NOTE | 2018-09-25 01:30 | NUR ---
MADE ROUNDS. PTMIS SLEEPING WELL AT THIS TIME. NO S/S OF ANY DISCOMFORT/PAIN NOTED.
--- NOTE | 2018-09-25 02:30 | NUR ---
PT ASLEEP. NO S/S OF ANY DISTRESS NOR PAIN NOTED. WILL CONTINUE TO MONITOR.
--- NOTE | 2018-09-25 04:30 | NUR ---
ASLEEP. NO S/S OF ANY DISCOMFORT NOR APIN NOTED.
--- NOTE | 2018-09-25 06:00 | NUR ---
PT STILL ON CLEAR LIQUID. TO START ANOTHER 2000ML OF GOLYTELY @0700 THIS AM. STOOL OUTPUT IS STILL YELLOWISH LIQUID WITH SMALL PARTICLES, USING BEDSIDE COMMODE .
[2018-09-25 06:44] LABS: BASOPHILS % (AUTO) 0.3 % (0.0-2.0); EOSINOPHILS # (AUTO) 1.1 K/uL (0-0.4); EOSINOPHILS % (AUTO) 9.2 % (0.0-4.0); HEMATOCRIT 21.7 % (36-52); HEMOGLOBIN 7.4 g/dL (12.0-18.0); LYMPHOCYTES # (AUTO) 2.2 K/uL (2.0-11.5); LYMPHOCYTES % (AUTO) 19.5 % (20.5-51.1); MEAN CORPUSCULAR HEMOGLOBIN 32 pg (27-31); MEAN CORPUSCULAR HGB CONC 34 g/dL (33-37); MEAN CORPUSCULAR VOLUME 93.5 fL (80-94); MONOCYTES # (AUTO) 0.9 K/uL (0.8-1.0); MONOCYTES % (AUTO) 8.2 % (1.7-9.3); NEUTROPHILS # (AUTO) 7.2 K/uL (1.8-7.7); NEUTROPHILS % (AUTO) 62.8 % (42.2-75.2); PLATELET COUNT (AUTO) 238 K/uL (140-450); RED BLOOD CELL COUNT(AUTO) 2.32 MIL/uL (4.20-6.10); RED CELL DISTRIBUTION WIDTH 16.3 % (11.6-13.7); WHITE BLOOD COUNT (AUTO) 11.5 K/uL (4.8-10.8)
[2018-09-25 06:53] LABS: ANION GAP 12.3 (8-16); CARBON DIOXIDE 25.1 mmol/L (21-32); CHLORIDE 105 mmol/L (98-107); GLUCOSE 116 mg/dL (74-106); POTASSIUM 3.4 mmol/L (3.5-5.1); SODIUM SERUM 139 mmol/L (136-145); UREA NITROGEN, BLOOD 26 mg/dL (7-18)
[2018-09-25] MEDS ORDERED: BOWEL EVACUANT DRINK 4,000 ML PDS PO SCH (07:00)
[2018-09-25] MEDS: DEXT 5% / NACL 0.45% 1,000 ML IV SCH (07:06)
--- NOTE | 2018-09-25 07:07 | NUR ---
ENDORSED PT IN STABLE CONDITION TO AM NURSE FOR CONTINUITY OF CARE.
[2018-09-25 07:40] LABS: MAGNESIUM 1.7 mg/dL (1.8-2.4); PHOSPHORUS 2.8 mg/dL (2.5-4.9)
--- NOTE | 2018-09-25 07:44 | NUR ---
PATIENT WAS AWAKE, ALERT. RESPIRATION EVEN, UNLABOR ON ROOM AIR. SKIN DRY AND WARM. IV PATENT AND INTACT. DENIED PAIN, N./V. PLAN OF CARE WAS DISCUSSED WITH PATIENT. BED AT LOW POSITION, SIDE RAILS UP. BED ALARM ACTIVE. PATIENT WAS INSTRUCTED TO CALL FOR STAFF WHEN NEED TO GO BATHROOM. PATIENT VERBALIZED UNDERSTANDING
[2018-09-25] MEDS ORDERED: POTASSIUM CHLORIDE 10 MEQ TABER PO SCH (08:30)
[2018-09-25] MEDS ORDERED: MAGNESIUM OXIDE 400 MG TAB PO SCH (08:30)
[2018-09-25] MEDS: LACTULOSE 20 GM/30 ML UDC PO SCH ×2 (09:05→12:48)
[2018-09-25] MEDS: PANTOPRAZOLE 40 MG INJ VIAL IVP SCH (09:06)
[2018-09-25] MEDS: ATORVASTATIN 20 MG TAB PO SCH (09:07)
[2018-09-25] MEDS: SODIUM PHOS / POTASSIUM PHOS 1 PKT PDR PO SCH ×2 (09:08→20:13)
[2018-09-25] MEDS: LACTOBACILLUS RHAMNOSUS GG 1 EACH CAP PO SCH (09:08)
[2018-09-25] MEDS: SENNA 8.6 MG TAB PO SCH ×2 (09:08→12:49)
[2018-09-25] MEDS: TAMSULOSIN 0.4 MG CAP PO SCH (09:09)
--- NOTE | 2018-09-25 09:30 | NUR ---
PATIENT COMPLAINED OF PAIN AT IV SITE ON LEFT FOREARM. IV WAS REMOVED, CATHETER INTACT, NO ACTIVE BLEEDING SEEN.
--- NOTE | 2018-09-25 10:15 | NUR ---
PATIENT WAS RESTING COMFORTABLY. RESPIRATION EVEN, UNLABOR ON ROOM AIR. PATIENT HAD BM X1, CLEAR STOOL. NO DISTRESS NOTED AT THIS TIME
[2018-09-25] MEDS ORDERED: ACETAMINOPHEN 325 MG TAB PO SCH (10:20)
[2018-09-25] MEDS ORDERED: diphenhydrAMINE 12.5 MG/5 ML UDC NG SCH (10:20)
--- NOTE | 2018-09-25 11:48 | NUR ---
NEW IV WAS INSERTED ON RIGHT HAND. PATIENT TOLERATED WELL
--- NOTE | 2018-09-25 13:25 | NUR ---
Mobile Developer Note: I faxed inquiry to [facility]. Per Daly from [facility] / , patient has been accepted and may go to room 222A upon discharge, accepting physician is . Daly stated they will arrange transportation for patient to be transfer to their facility and contact nurses' station to obtain update on discharge date and provide nurse with transportation details.
--- NOTE | 2018-09-25 13:55 | NUR ---
PATIENT WAS AWAKE, ALERT. VS IS STABLE. BLOOD TRANSFUSION WAS VERIFIED BY 2 RN. BLOOD TRANSFUSION WAS STARTED. WILL CONTINUE TO MONITOR
--- NOTE | 2018-09-25 14:15 | NUR ---
PATIENT WAS TRANSFERRED TO GI LAB. BLOOD TRANSFUSION WILL BE CONTINUED TO MONITOR IN GI LAB. PATIENT IS STABLE AT THIS TIME
--- NOTE | 2018-09-25 14:27 | NUR ---
CALLED AND LEFT CONSTANCE TO SHARON MORGAN, PERSON TO NOTIFY [phone] TO CALL BACK TO OBTAIN AND VERIFY INFORMATION FOR SCREENING.
[2018-09-25] MEDS ORDERED: fentaNYL 0.05 MG/ML VIAL ONE (14:37)
[2018-09-25] MEDS ORDERED: MIDAZOLAM 2 MG/2 ML VIAL ONE (14:37)
[2018-09-25] MEDS ORDERED: diphenhydrAMINE 50 MG/ML VIAL ONE (14:37)
--- NOTE | 2018-09-25 15:20 | NUR ---
PATIENT WAS TRANSFERRED BACK FROM GI LAB. VS WAS TAKEN. PATIENT IS STABLE AT THIS TIME
--- NOTE | 2018-09-25 16:50 | NUR ---
BLOOD TRANSFUSION WAS DONE. PATIENT WAS AWAKE, ALERT. RESPIRATION EVEN, UNLABOR ON ROOM AIR. NO DISTRESS NOTED AT THIS TIME
--- NOTE | 2018-09-25 16:51 | NUR ---
Lockstitch Zipper Setter Note: Per patient's son Tate Teresa , he is unsure if patient will be in agreement with short term snf placement. He stated he is planning to come to hospital and speak with patient regarding this and let MD know patient's decision, Charge Nurse Leydi made aware.
--- NOTE | 2018-09-25 18:00 | NUR ---
PATIENT WAS AWAKE, ALERT. RESPIRATION EVEN, UNLABOR ON ROOM AIR. IVS PATENT AND INTACT. NO DISTRESS NOTED AT THIS TIME
--- NOTE | 2018-09-25 19:20 | NUR ---
ENDORSEMENT GIVEN TO MOTOR AND CONTROLS TESTER NURSE. PATIENT WAS STABLE AT THIS TIME.
--- NOTE | 2018-09-25 19:21 | NUR ---
REPORT RECEIVED FROM AM NURSE AT BEDSIDE. PT IN STABLE CONDITION. AAOX2-3. INTRODUCED SELF TO PT. BOARD UPDATED. NO COMPLAINTS OF PAIN. NO SOB. AFEBRILE. IV SITE L WRIST 20G SL AND R HAND 22G RUNNING D5 1/2NS@80ML/HR PATENT AND INTACT. SKIN WARM, DRY, AND INTACT WITH NO OPEN WOUNDS. BED LOCKED IN LOW POSITION. CALL [place] WITHIN REACH. SAFETY PRECAUTIONS IN PLACE. ALL NEEDS MET AT THIS TIME.
[2018-09-25 19:44] LABS: BASOPHILS % (AUTO) 0.3 % (0.0-2.0); EOSINOPHILS # (AUTO) 1.1 K/uL (0-0.4); EOSINOPHILS % (AUTO) 10.5 % (0.0-4.0); HEMATOCRIT 27.7 % (36-52); HEMOGLOBIN 9.5 g/dL (12.0-18.0); LYMPHOCYTES # (AUTO) 2.2 K/uL (2.0-11.5); LYMPHOCYTES % (AUTO) 21.3 % (20.5-51.1); MEAN CORPUSCULAR HEMOGLOBIN 32 pg (27-31); MEAN CORPUSCULAR HGB CONC 34 g/dL (33-37); MEAN CORPUSCULAR VOLUME 92.8 fL (80-94); MONOCYTES % (AUTO) 9.5 % (1.7-9.3); NEUTROPHILS % (AUTO) 58.4 % (42.2-75.2); PLATELET COUNT (AUTO) 238 K/uL (140-450); RED BLOOD CELL COUNT(AUTO) 2.99 MIL/uL (4.20-6.10); RED CELL DISTRIBUTION WIDTH 16.6 % (11.6-13.7); WHITE BLOOD COUNT (AUTO) 10.4 K/uL (4.8-10.8)
--- NOTE | 2018-09-25 20:13 | NUR ---
NEUTROPHOS PACK GIVEN PO. PT TOLERATED WELL.
--- NOTE | 2018-09-25 20:45 | NUR ---
HGB 9.5. NOTIFIED. NO NEW ORDERS.
--- NOTE | 2018-09-25 22:35 | NUR ---
PT UP OUT OF BED ON BEDSIDE COMMODE HAVING A BM. NO S/S OF DISTRESS NOTED. PT ABLE TO GET BACK INTO BED WITH ASSISTANCE. WILL CONTINUE TO MONITOR.
[2018-09-26] VITALS (35 sets, daily range): BP systolic 82–168; BP diastolic 41–106
[2018-09-26] MEDS: DEXT 5% / NACL 0.45% 1,000 ML IV SCH ×2 (00:05→08:57)
--- NOTE | 2018-09-26 00:10 | NUR ---
PT HAS COMPLAINTS OF ABDOMINAL PAIN. MD NOTIFIED.
--- NOTE | 2018-09-26 00:20 | NUR ---
MD USED TRAM INSPECTOR PHONE TO SPEAK WITH THE PATIENT. MD ORDERED KUB AND MYLICON DROPS. AWAITING PHARMACY TO VERIFY BEFORE GIVING TO THE PATIENT.
[2018-09-26] MEDS ORDERED: SIMETHICONE 80 MG TAB.CHEW PO SCH (00:30)
--- NOTE | 2018-09-26 00:41 | NUR ---
MYELICON CHEWABLE GIVEN PO. PT TOLERATED WELL.
[2018-09-26] MEDS ORDERED: KETOROLAC 15 MG/ML VIAL IVP SCH (01:15)
--- NOTE | 2018-09-26 01:24 | NUR ---
TORADOL GIVEN IVP FOR ABD PAIN. PT TOLERATED WELL.
--- NOTE | 2018-09-26 02:30 | NUR ---
PT WENT FOR KUB. WENT BY WHEELCHAIR.
--- NOTE | 2018-09-26 02:40 | NUR ---
PT RETURNED FROM RADIOLOGY.
--- NOTE | 2018-09-26 05:05 | NUR ---
PT SLEEPING COMFORTABLY IN BED BUT AROUSABLE. NO S/S OF DISTRESS NOTED. NO COMPLAINTS OF PAIN. NO SOB. AFEBRILE. WILL CONTINUE TO MONITOR.
[2018-09-26] MEDS ORDERED: MORPHINE SULFATE 2 MG/ML SYR IVP PRN ×2 (05:40→11:50)
[2018-09-26] MEDS ORDERED: SIMETHICONE 80 MG TAB.CHEW PO PRN (05:40)
--- NOTE | 2018-09-26 05:40 | NUR ---
PT WHIMPERING IN PAIN. MD NOTIFIED. NEW ORDERS ADDED.
--- NOTE | 2018-09-26 05:54 | NUR ---
MYLICON CHEWABLE GIVEN PO. MORPHINE GIVEN IVP FOR 10/10 ABDOMINAL PAIN. PT TOLERATED WELL.
--- NOTE | 2018-09-26 07:17 | NUR ---
REPORT GIVEN TO AM NURSE AT BEDSIDE. PT IN STABLE CONDITION.
--- NOTE | 2018-09-26 07:18 | NUR ---
RECEIVED BEDSIDE REPORT FROM SUSHMA RUVALCABA. PATIENT ON TELE MONITOR AND STANDARD PRECAUTIONS IN PLACE. PATIENT AAOX4 AND ON ROOM AIR, NO DISTRESS NOTED. SKIN INTACT. PATIENT CONTINENT. FALL RISK PROTOCOL IN PLACE. IV ON L WRIST 20 G SALINE LOCK, ASYMPTOMATIC PATENT AND INTACT. IV ON R FA 22 G INFUSING D51/2 NS AT 80, IV ASYMPTOMATIC PATENT AND INTACT. BED IN LOW POSITION, CALL LIGHT WITHIN REACH, SIDE RAILS X2 UP
[2018-09-26] MEDS: LACTOBACILLUS RHAMNOSUS GG 1 EACH CAP PO SCH (08:54)
[2018-09-26] MEDS: ATORVASTATIN 20 MG TAB PO SCH (08:55)
[2018-09-26] MEDS: SODIUM PHOS / POTASSIUM PHOS 1 PKT PDR PO SCH (08:55)
[2018-09-26] MEDS: TAMSULOSIN 0.4 MG CAP PO SCH (08:56)
--- NOTE | 2018-09-26 08:57 | NUR ---
ADMINISTERED SCHEDULED MEDS. PATIENT TOLERATED WELL
--- NOTE | 2018-09-26 09:09 | NUR ---
PATIENT ON BEDSIDE COMMODE, NO DISTRESS NOTED, ON ROOM AIR
--- NOTE | 2018-09-26 10:08 | NUR ---
ADMINISTERED NORCO PRN FOR 6/10 PAIN. WILL RE ASSESS PAIN
--- NOTE | 2018-09-26 10:30 | NUR ---
PT NOTE 1000 ATTEMPTED TO SEE Pt FOR PT TX BUT PER FAMILY PRESENT AT BEDSIDE Pt IS IN A LOT OF PAIN AND WOULD NOT BE ABLE TO PARTICIPATE WITH PT AT THIS TIME; WILL FOLLOW UP WITH Pt ON FRIDAY; RN UPDATED.
--- NOTE | 2018-09-26 12:10 | NUR ---
RECEIVED CALL FROM ROSA FROM [facility] PHONE # [phone] REGARDING WHETHER OR NOT THERE IS DISCHARGE ORDER FOR PATIENT. SPOKE TO DR. LANE AND SAID PATIENT IS NOT READY FOR DISCHARGE TODAY.
[2018-09-26] MEDS ORDERED: MORPHINE SULFATE 2 MG/ML SYR IVP SCH ×2 (12:15→16:45)
[2018-09-26] MEDS ORDERED: HYDROmorphone 1 MG/ML AMP IVP PRN (13:20)
[2018-09-26 13:35] LABS: BASOPHILS % (AUTO) 0.2 % (0.0-2.0); EOSINOPHILS % (AUTO) 0.1 % (0.0-4.0); HEMATOCRIT 34.6 % (36-52); HEMOGLOBIN 11.5 g/dL (12.0-18.0); LYMPHOCYTES # (AUTO) 0.4 K/uL (2.0-11.5); LYMPHOCYTES % (AUTO) 8.1 % (20.5-51.1); MEAN CORPUSCULAR HEMOGLOBIN 31 pg (27-31); MEAN CORPUSCULAR HGB CONC 33 g/dL (33-37); MEAN CORPUSCULAR VOLUME 93.1 fL (80-94); MONOCYTES # (AUTO) 0.3 K/uL (0.8-1.0); MONOCYTES % (AUTO) 5.9 % (1.7-9.3); NEUTROPHILS % (AUTO) 85.7 % (42.2-75.2); PLATELET COUNT (AUTO) 279 K/uL (140-450); RED BLOOD CELL COUNT(AUTO) 3.71 MIL/uL (4.20-6.10); RED CELL DISTRIBUTION WIDTH 17.6 % (11.6-13.7); WHITE BLOOD COUNT (AUTO) 4.6 K/uL (4.8-10.8)
[2018-09-26 13:46] LABS: ANION GAP 15.6 (8-16); CHLORIDE 107 mmol/L (98-107); CREATININE 1.3 mg/dL (0.7-1.3); GLUCOSE 145 mg/dL (74-106); POTASSIUM 4.6 mmol/L (3.5-5.1); SODIUM SERUM 139 mmol/L (136-145); UREA NITROGEN, BLOOD 21 mg/dL (7-18)
[2018-09-26 13:48] LABS: AMYLASE 138 U/L (25-115); LIPASE 847 U/L (73-393)
[2018-09-26 13:50] LABS: MAGNESIUM 1.5 mg/dL (1.8-2.4)
--- NOTE | 2018-09-26 14:40 | NUR ---
TRANSFERRED IN FROM [facility] THIS 83 YEAR OLD ALBANIAN MALE ACCOMPANIED BY RNS FOR CLOSER OBSERVATION DUE TO ABDOMINAL PAINS AND ST. AWAKE, FOLLOWS SIMPLE COMMANDS. PLACED ON NAIL SPECIALIST, IN ST HR 128/MIN, TACHYPNEIC RR 46/MIN. 02 AT 2 L/MIN/NC. 02 SAT 92%. IV D5 0.45% NS AT 80 ML/HR INFUSING VIA RT HAND IV SITE. ABLE TO ASSIST IN REPOSITIONING FROM SIDE TO SIDE. ABD. AREA TENDER TO TOUCH.
--- NOTE | 2018-09-26 14:40 | NUR ---
PATIENT TRANSFERRED TO ICU BED 5 FOR CLOSER MONITORING. BEDSIDE REPORT GIVEN TO SUSHMA METZGER
--- NOTE | 2018-09-26 14:50 | NUR ---
ATTEMPTED TO INSERT MCKNIGHT CATHETER. UNABLE TO. OBSTRUCTION NOTED. DR. LANE AWARE.
--- NOTE | 2018-09-26 15:00 | NUR ---
MOANING. NODDED HEAD WHEN ASKED IF HE HAS PAINS. UNABLE TO DESCRIBE PAIN.
--- NOTE | 2018-09-26 15:10 | NUR ---
DR. YOUNG HERE TO SEE AND EXAMINE PT.
--- NOTE | 2018-09-26 15:15 | NUR ---
RECEIVED PATIENT ON BED.DR YOUNG AT THE [facility].PT IS HOLDING ON TO THE STOMACH AND CO 10/[address] MORGAN AT THE BEDSIDE AND ACTED COMBAT SYSTEMS OPERATOR.
--- NOTE | 2018-09-26 15:15 | NUR ---
DRS. MORGAN AND ARIANA Garcia [facility].
--- NOTE | 2018-09-26 15:26 | NUR ---
09/26/18 RD FOLLOW UP COMPLETED PLEASE REFER TO NUTRITION PROGRESS NOTE UNDER CARE ACTIVITY FOR ESTIMATED NUTRITION NEEDS. RD RECOMMENDATIONS 1. CONTINUE NPO MEDICALLY NECESSARY 2. WHEN PATIENT IS STABLE TO ADVANCE DIET CONSIDER A SWALLOW EVALUATION 3. RECOMMEND ENSURE BID WHEN PATIENT IS STABLE FOR PO INTAKE 4. RD TO FOLLOW-UP 2-3 DAYS, HIGH RISK WYATT QUIÑONES,RD
[2018-09-26] MEDS ORDERED: NACL 0.9% 1,000 ML IV SCH (15:40)
[2018-09-26] MEDS ORDERED: NACL 0.9% 500 ML IV SCH (15:40)
[2018-09-26] MEDS: metroNIDAZOLE 500 MG/NS PREMIX 100 ML IV SCH ×2 (15:42→23:02)
--- NOTE | 2018-09-26 15:45 | NUR ---
SON AT THE BEDSIDE AND TALKED TO DR MORGAN AND DR YOUNG REGARDING THE CONDITION OF THE PATIENT AND THE NEED FOR SURGERY.
--- NOTE | 2018-09-26 15:46 | NUR ---
ABG RESULTS GIVEN TO PHYSICIAN MADE AWARE OF CRITICAL RESULTS.
[2018-09-26] MEDS ORDERED: FAMOTIDINE 20 MG/2 ML VIAL IV SCH (16:00)
--- NOTE | 2018-09-26 16:00 | NUR ---
PER DR ARIANA ALMEIDA GIVE DILAUDID FOR PAIN.PER MD WILL ORDER MORPHINE FOR PAIN
--- NOTE | 2018-09-26 16:00 | NUR ---
zosyn was about to be given but IN STORE BANKER said will give it.
--- NOTE | 2018-09-26 16:02 | NUR ---
DR CONDE AT THE BEDSIDE AND TALKING TO SON ABOUT SURGERY AND GETTING HIS CONSENT WITH DR MORGAN .SON VERBALIZED UNDERSTANDING. Addendum: 09/26/18 at 1837 by Leah Cervantes RN RN DR CONDE SAID ELLE RAMSAY MD WILL DO AT OR. Addendum: 09/26/18 at 1929 by Leah Cervantes RN RN above spekying is dr molina
--- NOTE | 2018-09-26 16:27 | NUR ---
ELAN CARNEY INSERTED CAUDE MALAGASY 16 MCKNIGHT RADAR MECHANIC ATTEMPTED TO INSERT MCKNIGHT BUT WAS UNABLE BECAUSE THERE WAS RESISTANCE
[2018-09-26] MEDS ORDERED: PIPERACILLIN/TAZOBACTAM 3.375 GM VIAL IV ONE ×2 (16:30→23:29)
[2018-09-26] MEDS ORDERED: MAG SULF 2000 MG/WATER PREMIX 50 ML IV SCH (16:30)
--- NOTE | 2018-09-26 16:30 | NUR ---
DR LANE NOTIFIED IF OK TO GIVE DILAUDID FOR PAIN MED.PT CO ABDOMINAL PAIN 03/04 PER SON.PER MD DONT GIVE DILAUDID .GIVE MORPHINE,PER MD WILL ORDER.
[2018-09-26] MEDS ORDERED: BUPIVACAINE-MPF 0.5% 30 ML VIAL INJ ONE (16:31)
[2018-09-26 16:33] LABS: ALBUMIN 2.8 g/dL (3.4-5.0); BILIRUBIN,DIRECT 0.3 mg/dL (0.0-0.3)
[2018-09-26] MEDS ORDERED: PROPOFOL 200 MG/20 ML VIAL IV ONE (16:40)
[2018-09-26] MEDS ORDERED: ROCURONIUM 50 MG/5 ML VIAL IV ONE (16:40)
[2018-09-26] MEDS ORDERED: DESFLURANE 240 ML BTL INH ONE (16:40)
[2018-09-26] MEDS ORDERED: ONDANSETRON 4 MG/2 ML VIAL ONE (16:40)
[2018-09-26] MEDS ORDERED: SUCCINYLCHOLINE CHLORIDE 200 MG/10 ML VIAL IVP ONE (16:40)
[2018-09-26] MEDS ORDERED: GLYCOPYRROLATE 0.2 MG/ML VIAL ONE (16:40)
--- NOTE | 2018-09-26 16:45 | NUR ---
LINETTE TO GIVE MORPHINE FOR PAIN ORDERED BY DR LANE.PER ANESTHESIOLOGIST ELLE ARZATE.. Addendum: 09/26/18 at 1710 by Leah Cervantes RN RN ABOVE LINETTE IS PLAN
--- NOTE | 2018-09-26 16:46 | NUR ---
BROUGHT PATIENT TO OR ACCOMPANIED BY ANESTHESIOLOGIST,RN,LICENSING ENGINEER,2 OR NURSES.ENDORSED TO GREGORIO TO MONITOR DENISEER.ONGOING.SON AT THE BEDSIDE AND AFTERWARDS WILL BRING TO [facility].
[2018-09-26] MEDS: PIPER/TAZO 3.375GM/D5W PREMIX 50 ML IV SCH (18:00)
[2018-09-26] MEDS ORDERED: fentaNYL 0.05 MG/ML VIAL ONE (18:00)
--- NOTE | 2018-09-26 18:00 | NUR ---
zosyn not given pt is in or.
--- NOTE | 2018-09-26 19:07 | NUR ---
Report given to Gómez for continuity of care .Pt still at or
--- NOTE | 2018-09-26 19:15 | NUR ---
RECEIVED REPORT FROM OR NURSE MARILYN. PT S/P EX. LAP. PT HAS EYES CLOSED, OPENS EYES TO PAINFUL STIMULI; UNABLE TO FOLLOW COMMANDS @ THIS TIME. 7.5 MM ETT TO VENT 21 CM @ GUM. CLEAR BREATH SOUNDS BILATERALLY; EVEN UNLABORED. ST 120S, NO EDEMA NOTED, PALPABLE PULSES +2 RADIAL, + 1 PEDAL. ABD SOFT NON DISTENDED, HYPOACTIVE BS, NGT IN PLACE TO R NARES, + PLACEMENT. MCKNIGHT CATH IN PLACE, CLEAR YELLOW URINE, SCDS IN PLACE. MID ABD INCISION, WITH ISLAND DRESSING CDI. BLANCHABLE REDNESS TO BUTTOCKS AREA. TRIPLE LUMEN CENTRAL LINE RIJ IN PLACE, FLUSHES, PATENT X3 PORTS. 18G L IJ EXTERNAL JUGULAR IV IN PLACE. SCDS IN PLACE. RT @ BEDSIDE. ANESTHESIOLOGIST @ BEDSIDE. WILL CONTINUE TO OBSERVE.
[2018-09-26] MEDS ORDERED: MORPHINE SULFATE 50 MG in NACL 0.9% 45 ML IV PRN (19:20)
[2018-09-26] MEDS ORDERED: MIDAZOLAM MDV 50 MG in NACL 0.9% 40 ML IV PRN (19:20)
--- NOTE | 2018-09-26 19:24 | NUR ---
PATIENT PLACED ON VENT: AC, 450, 10, 45%, +5 PER MD. ETT 7.5 SECURED WITH ANCHORFAST AT 22CM AT TEETH. BREATH SOUNDS EQUAL AND CLEAR BILATERALLY. VITALS: SAO2 100%, RR 12, PULSE 85. ALARMS ON AND AUDIBLE. PLUGGED INTO RED OUTLET. AMBU BAG AT BEDSIDE. NO DISTRESS NOTED.
[2018-09-26 19:33] LABS: HEMATOCRIT 33.7 % (36-52); MEAN CORPUSCULAR VOLUME 95.2 fL (80-94); RED BLOOD CELL COUNT(AUTO) 3.54 MIL/uL (4.20-6.10)
[2018-09-26 19:43] LABS: HEMOGLOBIN 11.1 g/dL (12.0-18.0); MEAN CORPUSCULAR HEMOGLOBIN 31 pg (27-31); MEAN CORPUSCULAR HGB CONC 33 g/dL (33-37); PLATELET COUNT (AUTO) 256 K/uL (140-450); RED CELL DISTRIBUTION WIDTH 18.8 % (11.6-13.7); WHITE BLOOD COUNT (AUTO) 5.7 K/uL (4.8-10.8)
[2018-09-26 19:45] LABS: ANION GAP 12.5 (8-16); CARBON DIOXIDE 23.2 mmol/L (21-32); CHLORIDE 108 mmol/L (98-107); CREATININE 1.4 mg/dL (0.7-1.3); GLUCOSE 149 mg/dL (74-106); POTASSIUM 4.7 mmol/L (3.5-5.1); SODIUM SERUM 139 mmol/L (136-145); UREA NITROGEN, BLOOD 20 mg/dL (7-18)
[2018-09-26] MEDS ORDERED: LORazepam 2 MG/ML VIAL IVP ONE (20:00)
[2018-09-26] MEDS ORDERED: ALBUTEROL SULFATE/IPRATROPIU 3 ML SOL IH PRN (20:10)
[2018-09-26 20:11] LABS: LYMPHOCYTES % (MANUAL) 19 % (20-46)
[2018-09-26 20:12] LABS: EOSINOPHILS % (MANUAL) 1 % (0-4); METAMYELOCYTES % 2 % (0-0); MONOCYTES % (MANUAL) 4 % (5-12)
[2018-09-26] MEDS ORDERED: MORPHINE SULFATE 100 MG in NACL 0.9% 100 ML IV PRN (20:38)
[2018-09-26] MEDS ORDERED: DEXT 5% /NACL 0.9% 1,000 ML IV SCH (21:55)
[2018-09-26] MEDS: MIDAZOLAM MDV 100 MG in NACL 0.9% 80 ML IV PRN (22:20)
[2018-09-26] MEDS: MORPHINE SULFATE 100 MG in NACL 0.9% 90 ML IV PRN (22:23)
--- NOTE | 2018-09-26 22:23 | NUR ---
VERSED AND MORPHINE DRIP STARTED; TITRATING TO RASS-3. VSS. NO ACUTE DISTRESS NOTED. WILL CONTINUE TO OBSERVE
[2018-09-27] VITALS (103 sets, daily range): BP systolic 72–141; BP diastolic 38–87
[2018-09-27] MEDS: PIPER/TAZO 3.375GM/D5W PREMIX 50 ML IV SCH ×4 (00:22→17:44)
--- NOTE | 2018-09-27 00:48 | NUR ---
PT HAS EYES CLOSED; RASS-3 FLACC 0. VSS. WILL CONTINUE TO MONITOR.
--- NOTE | 2018-09-27 03:30 | NUR ---
SPOKE WITH DR HAY ABOUT BP, PT TRENDING 90-100S SBP MAP<65 @ THIS TIME. STATED THERE ARE STANDING ORDERS FOR LEVOPHED TITRATE TO KEEP SBP GREATER THAN 90 MMHG AND OR MAP <60. WILL CONTINUE TO MONITOR.
--- NOTE | 2018-09-27 04:45 | NUR ---
AM CARE GIVEN, VAP ORAL CARE DONE, MCKNIGHT CARE DONE. LINEN CHANGED. PT TURNED AND REPOSITIONED. NO ACUTE DISTRESS. NOTED. WILL CONTINUE TO MONITOR.
--- NOTE | 2018-09-27 06:30 | NUR ---
DR. LANE @ BEDSIDE. UPDATED MD REGARDING PT STATUS. NO NEW ORDERS @ THIS TIME.
[2018-09-27 06:59] LABS: BASOPHILS % (AUTO) 0.1 % (0.0-2.0); HEMATOCRIT 28.6 % (36-52); HEMOGLOBIN 9.4 g/dL (12.0-18.0); LYMPHOCYTES # (AUTO) 0.5 K/uL (2.0-11.5); LYMPHOCYTES % (AUTO) 3.9 % (20.5-51.1); MEAN CORPUSCULAR HEMOGLOBIN 31 pg (27-31); MEAN CORPUSCULAR HGB CONC 33 g/dL (33-37); MONOCYTES # (AUTO) 0.6 K/uL (0.8-1.0); MONOCYTES % (AUTO) 5.1 % (1.7-9.3); NEUTROPHILS # (AUTO) 10.7 K/uL (1.8-7.7); NEUTROPHILS % (AUTO) 90.9 % (42.2-75.2); PLATELET COUNT (AUTO) 221 K/uL (140-450); RED BLOOD CELL COUNT(AUTO) 3.04 MIL/uL (4.20-6.10); WHITE BLOOD COUNT (AUTO) 11.7 K/uL (4.8-10.8)
[2018-09-27 07:03] LABS: CARBON DIOXIDE 21.2 mmol/L (21-32); CHLORIDE 108 mmol/L (98-107); CREATININE 1.2 mg/dL (0.7-1.3); GLUCOSE 166 mg/dL (74-106); POTASSIUM 4.2 mmol/L (3.5-5.1); SODIUM SERUM 137 mmol/L (136-145); UREA NITROGEN, BLOOD 22 mg/dL (7-18)
--- NOTE | 2018-09-27 07:09 | NUR ---
RECEIVED INTUBATED PT WITH A 7.5 ETT SECURED @22 TEETH/GUMS ON VENT. SETTINGS AC/VC 10, VT 450, PEEP 5 AND FIO2 45%. BS CLEAR BILATERALLY. ETT SECURE WITH ANCHOR FAST DEVICE AND AIRWAY IS PATENT. PT NOT IN ANY DISTRESS AT THIS TIME. VENT IS PLUGGED INTO A RED OUTLET WITH ALARMS ON AND FUNCTIONING. AMBU BAG IS PRESENT NEAR BEDSIDE. WILL CONTINUE TO MONITOR.
[2018-09-27 07:12] LABS: MAGNESIUM 1.9 mg/dL (1.8-2.4); PHOSPHORUS 3.2 mg/dL (2.5-4.9)
--- NOTE | 2018-09-27 07:20 | NUR ---
DR. CAMARA IN TO SEE PT. DR. CAMARA CHANGED THE DRESSING. THE SURGICAL SITE CLEAN, NO BLEEDING, NO INFLAMMATION, NO DRAINAGE NOTED WITH 34 JO ANN. PT FLACC 0. RASS -3. CVP 8. BILATERAL LUNGS SOUND CLEAR. ABDOMINAL BOWEL SOUNDS ACTIVE. ETT TO VENT AC 10, FIO2 45, TV 450, PEEP 5. NG TUBE RIGHT NARE. NPO EXCEPT MEDS AT THIS TIME. NO RESIDUAL NOTED. MCKNIGHT NOTED WITH CLEAR LIGHT PINK IN COLOR. RIGHT IJ WITH TRIPLE LUMEN. PERIPHERAL LINES TO LEFT EJ 16G AND RIGHT HAND 22 G. ALL PATENT AND ASYMPTOMATIC. BILATERAL SOFT WRIST RESTRAINT IN PLACE. RELEASED THE NOTED MOVING THE HANDS TOWARDS THE ETT. SKIN CLEAN AND CIRCULATION GOOD. RESTRAINT PLACED BACK. RESPOSITIONED FOR COMFORT. KEPT HOB ELEVATED [address]ES. BILATERAL SCD IN PLACE. CONTINUING WITH VERCED AND MORPHINE DRIPS IN TITRATION. CALL LIGHT IN REACH. WILL CONTINUE TO MONITOR. Addendum: 09/27/18 at 1133 by Anny Vazquez RN TYPO CORRECTION-LEFT EJ NOT 16G. LEFT EJ IS 18G.
--- NOTE | 2018-09-27 07:47 | NUR ---
DR YATES WITH RESIDENTS ROUNDING AND MADE SURE HE IS AWARE OF LACTIC ACID 2.4.
[2018-09-27] MEDS ORDERED: TPN PER PHARMACY MC PRN (07:55)
--- NOTE | 2018-09-27 08:01 | NUR ---
DR. LANE IN AND ORDERED TO START TPN, PHARMACY TO DOSE AND NO PO MEDS TO BE GIVEN AT LEAST 4 DAYS BUT OK FOR IV MEDS. NOTED AND WILL CARRY OUT.
--- NOTE | 2018-09-27 08:15 | NUR ---
VAP ORAL CARE PROVIDED. TOLERATED WELL.
[2018-09-27] MEDS: PANTOPRAZOLE 40 MG INJ VIAL IVP SCH (08:17)
[2018-09-27] MEDS: metroNIDAZOLE 500 MG/NS PREMIX 100 ML IV SCH ×2 (08:17→15:19)
[2018-09-27] MEDS: ATORVASTATIN 20 MG TAB PO SCH (08:18)
[2018-09-27] MEDS: LACTOBACILLUS RHAMNOSUS GG 1 EACH CAP PO SCH (08:18)
[2018-09-27] MEDS: NACL 0.9% 1,000 ML IV SCH ×2 (08:21→20:39)
--- NOTE | 2018-09-27 08:39 | NUR ---
HIGINIO, SON AT BED SIDE. ANSWERED ALL THE QUESTIONS AND UPDATED HIM WITH THE PT'S CONDITION. PT VSS AND FLACC 0. WILL CONTINUE TO MONITOR.
[2018-09-27] MEDS ORDERED: LACTOBACILLUS RHAMNOSUS GG 1 EACH CAP PO SCH (09:00)
--- NOTE | 2018-09-27 09:01 | NUR ---
PT IS CALM AND NOT TRYING TO PULL TUBES OUT. SON AT BED SIDE ENSURING PT NOT TO MOVE ANY TUBES. REMOVED THE BILATERAL SOFT WRIST RESTRAINTS AT THIS TIME. SON CONTINUES TO BE AT BED SIDE. WILL CONTINUE TO MONITOR.
[2018-09-27 09:28] LABS: FERRITIN 649 ng/mL (30-400)
--- NOTE | 2018-09-27 10:05 | NUR ---
REPOSITIONED FOR COMFORT. VSS. FLACC 0. RASS -3. WILL CONTINUE TO MONITOR.
--- NOTE | 2018-09-27 11:05 | NUR ---
DR. BLAND CAME TO SEE PT. WILL FOLLOW UP WITH ANY ORDERS.
--- NOTE | 2018-09-27 11:52 | NUR ---
PT OPENS HIS EYES AT THIS TIME, NOT IN ANY DISTRESS. WILL CONTINUE TO MONITOR.
--- NOTE | 2018-09-27 12:32 | NUR ---
MEDS ADMINISTERED. VAP ORAL KIT ADMINISTERED. REPOSITIONED TO OFF LOAD AND COMFORT. VSS. FLACC 0. RASS -3. WILL CONTINUE TO MONITOR.
--- NOTE | 2018-09-27 14:11 | NUR ---
REPOSITIONED PT FOR COMFORT. VSS. FLACC 0. HOB KEPT ELEVATED. BILATERAL SCD ON. WILL CONTINUE TO MONITOR.
--- NOTE | 2018-09-27 15:06 | NUR ---
PT RESTING COMFORTABLY IN BED NO DISTRESS NOTED. ETT SECURE WITH PATENT AIRWAY. WILL CONTINUE TO MONITOR.
--- NOTE | 2018-09-27 15:21 | NUR ---
TURKISH, SON AND THE DAUGHTER AT BED SIDE AT THIS TIME.
--- NOTE | 2018-09-27 16:15 | NUR ---
REPOSITIONED PT FOR COMFORT. VSS. FLACC 0. AFEBRILE. WILL CONTINUE TO MONITOR.
--- NOTE | 2018-09-27 16:56 | NUR ---
PT REMAINS ON DOCUMENTED VENT SETTINGS. PT IS ASLEEP AT THIS TIME NOT IN ANY DISTRESS. VENT ALARMS REMAIN ON AND FUNCTIONING. ETT IS SECURE WITH A PATENT AIRWAY.
--- NOTE | 2018-09-27 18:00 | NUR ---
REPOSITIONED PT FOR COMFORT. VSS. AFEBRILE. FLACC 0. SAME VENT SETTINGS. RASS -3 WITH VERSED AND MORPHINE DRIP. WILL CONTINUE TO MONITOR.
--- NOTE | 2018-09-27 18:10 | NUR ---
DR. MORGAN ORDERED TO ADMINISTER IV BOLUS DUE TO LOW BP. Addendum: 09/27/18 at 1833 by Anny Vazquez RN DELETE CHARTING. CHARTED ON WRONG PT.
--- NOTE | 2018-09-27 18:15 | NUR ---
DR. MORGAN AT BED SIDE ADJUSTING THE CENTRAL LINE TO LEFT IJ. Addendum: 09/27/18 at 1832 by Anny Vazquez RN DELETE CHARTING. CHARTED ON WRONG PT
--- NOTE | 2018-09-27 18:28 | NUR ---
DR. MORGAN ORDERED NOT TO USE THE BROWN PORT FROM THE CENTRAL LINE SINCE IT'S CLOGGED. Addendum: 09/27/18 at 1832 by Anny Vazquez RN DELETE CHARTING. CHARTED ON WRONG PT
--- NOTE | 2018-09-27 18:33 | NUR ---
PT VSS. AFEBRILE. ASSISTED WITH REPOSITIONING. FLACC 0. RASS -3. WILL CONTINUE TO MONITOR.
--- NOTE | 2018-09-27 19:29 | NUR ---
REPORT GIVEN TO [facility] FOR CONTINUITY OF CARE. PT VSS.
--- NOTE | 2018-09-27 19:30 | NUR ---
BED SIDE SHIFT REPORT RECEIVED FROM JOSE DANIEL ORDAZ. PT ABLE TO FOLLOW COMMANDS, INTUBATED. BREATHING NORMALLY ON THE VENT. AFIB WITH IRREGULAR HR. DR. DANIELLE ON THE CASE. ABDOMEN DRESSING INTACT. MCKNIGHT CATHETER INTACT AND DRAINING WELL. IVF IS RUNNING WELL, PT ON LIGHT SEDATION WITH MORPHINE AND VERSED. WILL CONTINUE TO MONITOR CLOSELY.
[2018-09-27] MEDS ORDERED: MULTIVITAMIN IV SCH ×4 (20:00)
[2018-09-27] MEDS ORDERED: AMINO ACIDS IV SCH ×4 (20:00)
[2018-09-27] MEDS ORDERED: [UNRECOGNIZED DRUG - OTHER] IV SCH ×4 (20:00)
[2018-09-27] MEDS ORDERED: DEXTROSE IV SCH ×4 (20:00)
--- NOTE | 2018-09-27 21:17 | NUR ---
PT CLEANED AND REPOSITIONED, WILL CONTINUE TO MONITOR CLOSELY.
[2018-09-28] VITALS (106 sets, daily range): BP systolic 73–153; BP diastolic 33–85
[2018-09-28] MEDS: metroNIDAZOLE 500 MG/NS PREMIX 100 ML IV SCH ×3 (00:09→16:20)
[2018-09-28] MEDS: PIPER/TAZO 3.375GM/D5W PREMIX 50 ML IV SCH ×5 (00:10→23:14)
--- NOTE | 2018-09-28 00:22 | NUR ---
Dr. DANIELLE AT THE BEDSIDE, DIGOXIN ORDERED, IVP DIGOXIN GIVEN, WILL CLOSELY MONITOR PT.
[2018-09-28] MEDS: BLOOD GLUCOSE MONITORING 1 DEV DEV MC SCH ×5 (00:23→23:29)
[2018-09-28] MEDS: ALBUTEROL SULFATE/IPRATROPIU 3 ML SOL IH SCH ×5 (02:37→19:31)
[2018-09-28] MEDS ORDERED: DIGOXIN 0.25 MG/ML AMP IV SCH ×3 (04:00→08:00)
[2018-09-28] MEDS: NACL 0.9% 1,000 ML IV SCH (05:07)
[2018-09-28 05:25] LABS: ANION GAP 12.3 (8-16); CARBON DIOXIDE 21.9 mmol/L (21-32); CHLORIDE 111 mmol/L (98-107); CREATININE 1.3 mg/dL (0.7-1.3); GLUCOSE 154 mg/dL (74-106); POTASSIUM 4.2 mmol/L (3.5-5.1); SODIUM SERUM 141 mmol/L (136-145); UREA NITROGEN, BLOOD 32 mg/dL (7-18)
[2018-09-28 05:31] LABS: MAGNESIUM 2.1 mg/dL (1.8-2.4); PHOSPHORUS 2.3 mg/dL (2.5-4.9)
[2018-09-28 06:13] LABS: BASOPHILS % (AUTO) 0.1 % (0.0-2.0); EOSINOPHILS # (AUTO) 0.4 K/uL (0-0.4); EOSINOPHILS % (AUTO) 3.7 % (0.0-4.0); HEMATOCRIT 23.9 % (36-52); HEMOGLOBIN 7.9 g/dL (12.0-18.0); LYMPHOCYTES # (AUTO) 0.5 K/uL (2.0-11.5); LYMPHOCYTES % (AUTO) 4.8 % (20.5-51.1); MEAN CORPUSCULAR HEMOGLOBIN 31 pg (27-31); MEAN CORPUSCULAR HGB CONC 33 g/dL (33-37); MEAN CORPUSCULAR VOLUME 94.7 fL (80-94); MONOCYTES # (AUTO) 0.5 K/uL (0.8-1.0); MONOCYTES % (AUTO) 4.8 % (1.7-9.3); NEUTROPHILS # (AUTO) 9.1 K/uL (1.8-7.7); NEUTROPHILS % (AUTO) 86.6 % (42.2-75.2); PLATELET COUNT (AUTO) 209 K/uL (140-450); RED BLOOD CELL COUNT(AUTO) 2.53 MIL/uL (4.20-6.10); RED CELL DISTRIBUTION WIDTH 19.4 % (11.6-13.7); WHITE BLOOD COUNT (AUTO) 10.5 K/uL (4.8-10.8)
--- NOTE | 2018-09-28 06:59 | NUR ---
RECEIVED INTUBATED PT WITH A 7.5 ETT SECURED @22 TEETH/GUMS ON VENT. SETTINGS AC/VC 10, VT 450, PEEP 5 AND FIO2 45%. BS CLEAR BILATERALLY. ETT SECURE WITH ANCHOR FAST DEVICE AND AIRWAY IS PATENT. PT IS ASLEEP ,NOT IN ANY DISTRESS AT THIS TIME. VENT IS PLUGGED INTO A RED OUTLET WITH ALARMS ON AND FUNCTIONING. AMBU BAG IS PRESENT NEAR BEDSIDE. ALLOCATIONS CLERK STATES TO HOLD OFF ON AM WEANING TILL RETURNS TO MONITOR PT. WILL CONTINUE TO MONITOR.
--- NOTE | 2018-09-28 07:21 | NUR ---
BEDSIDE REPORT GIVEN TO MARLA ORDAZ.
--- NOTE | 2018-09-28 07:22 | NUR ---
OBTAINED REPORT FROM LEASING PROFESSIONAL NURSE AT BEDSIDE, PT IS SEDATED, UNABLE TO FOLLOW COMMANDS, FLACC 0, VSS, NO S/S OF DISTRESS, ETT TO VENT WITH AC 10, TV 450, FIO2 45% PEEP 5, CLEAR LUNG SOUND YULI. O2 SAT AT 92 %, A-FIB ON TOOLS DEVELOPER, SOFT ABDOMEN WITH HYPOACTIVE BOWEL SOUNDS, SURGICAL WOUND TO MID ABDOMEN, COVERED WITH DRESSING, C/D/I. ON NPO AT THIS TIME. MCKNIGHT CATHETER IN PLACE WITH SEDIMENT YELLOW URINE VIA GRAVITY, SKIN IS WARM AND DRY TO TOUCH, CENTRAL LINE TO RIJ, TLC, PATENT, RUNNING VERSED AT 1MG/HR, MORPHINE AT 1MG/HR, TPN AT 50ML/HR, CVP AT 10, IV SITE TO RIGHT HAND, 22GA, RUNNING NS AT 50ML/HR, IV SITE TO LEFT EJ, 18GA, PATENT AND SL. SCD IN PLACE, HOB ELEVATED TO 30 DEGREES, SAFETY MEASURE CHECKED, POSITION CHANGED FOR COMFORT, CALL LIGHT WITHIN REACH, WILL CONTINUE TO MONITOR.
--- NOTE | 2018-09-28 07:51 | NUR ---
FIO2 INCREASED TO 50% PER ABG RESULTS AND DECREASED SPO2. NURSE MADE AWARE.
--- NOTE | 2018-09-28 08:00 | NUR ---
PT IS AWAKE, BUT NOT FOLLOW COMMANDS, TRYING TO PULL OFF THE TUBES, AND AGITATED, MD AWARE, ORDER OBTAINED, SOFT RESTRAIN PLACED ON BOTH WRIST AT THIS TIME, WILL CONTINUE TO MONITOR.
--- NOTE | 2018-09-28 08:30 | NUR ---
PT IS MORE CALM, ORAL CARE PROVIDED, SCHEDULED MEDICATION GIVEN, NO ADVERSE EFFECTS, POSITION CHANGED FOR OFF LOAD PRESSURE.
[2018-09-28] MEDS: LACTOBACILLUS RHAMNOSUS GG 1 EACH CAP PO SCH (08:32)
[2018-09-28] MEDS: ATORVASTATIN 20 MG TAB PO SCH (08:32)
[2018-09-28] MEDS: PANTOPRAZOLE 40 MG INJ VIAL IVP SCH (08:33)
[2018-09-28] MEDS: MORPHINE SULFATE 100 MG in NACL 0.9% 90 ML IV PRN (08:54)
[2018-09-28] MEDS: MIDAZOLAM MDV 100 MG in NACL 0.9% 80 ML IV PRN (08:57)
[2018-09-28] MEDS ORDERED: PANTOPRAZOLE 40 MG INJ VIAL IVP SCH (09:00)
[2018-09-28] MEDS ORDERED: NACL 0.9% 500 ML IV SCH ×2 (09:55→14:30)
--- NOTE | 2018-09-28 10:00 | NUR ---
PT IS RESTING IN BED, NO S/S OF DISTRESS, VSS, FLACC 0, POSITION CHANGED FOR OFF LOAD PRESSURE.
[2018-09-28] MEDS: SODIUM PHOS / POTASSIUM PHOS 1 PKT PDR NG SCH (11:00)
--- NOTE | 2018-09-28 11:00 | NUR ---
PT IS NPO, IT IS OK TO HOLD PO MEDICATION PER DR. GUZMAN.
--- NOTE | 2018-09-28 11:45 | NUR ---
MEET WITH DR. CAMARA AT BED SIDE WOUND CARE ORDER GIVEN. MID ABD SURGICAL WOUND 19 CM IN LENGTH WITH MULTIPLE JO ANN IN PLACE . NO S/S WOUND DEHISCENCE.
--- NOTE | 2018-09-28 11:45 | NUR ---
DR. CAMARA CAME IN TO SEE PT AT BEDSIDE, CHECKED WOUND SITE, NO S/S OF INFECTION, WOUND CARE PROVIDED, ORDERED OGT TO LWIS.
[2018-09-28] MEDS: INSULIN LISPRO SLIDING SCALE 100 UNITS/ML VIAL SUBQ PRN ×2 (11:56→17:51)
[2018-09-28] MEDS ORDERED: KETOROLAC 15 MG/ML VIAL IVP PRN (12:00)
--- NOTE | 2018-09-28 12:00 | NUR ---
PT TEMP 101.6F, DR. GUZMAN MADE AWARE, TORADOL ORDERED, COOLING MEASURE IN USE, ORAL CARE PROVIDED, POSITION CHANGED FOR OFF LOAD PRESSURE.
--- NOTE | 2018-09-28 12:23 | NUR ---
PT'S HR 160, DR. APPLE MADE AWARE, WILL CONSULT WITH DR. DANIELLE.
--- NOTE | 2018-09-28 12:29 | NUR ---
DR. VALLES CAME IN TO SEE PT AT BEDSIDE, UPDATED PT'S CONDITION, WILL CONTINUE TO MONITOR.
[2018-09-28] MEDS ORDERED: VANCOMYCIN PER PHARMACY MC PRN (12:40)
[2018-09-28] MEDS: GAUZE TP SCH (12:42)
[2018-09-28] MEDS ORDERED: NACL 0.9% 1,000 ML IV SCH (13:00)
[2018-09-28] MEDS ORDERED: VANCOMYCIN 1GM/DEXT 5% PREMIX 200 ML IV SCH (13:00)
[2018-09-28 13:10] LABS: BASOPHILS % (AUTO) 0.1 % (0.0-2.0); EOSINOPHILS # (AUTO) 0.5 K/uL (0-0.4); EOSINOPHILS % (AUTO) 4.9 % (0.0-4.0); HEMATOCRIT 20.4 % (36-52); LYMPHOCYTES # (AUTO) 0.3 K/uL (2.0-11.5); LYMPHOCYTES % (AUTO) 3.2 % (20.5-51.1); MEAN CORPUSCULAR HEMOGLOBIN 32 pg (27-31); MEAN CORPUSCULAR HGB CONC 33 g/dL (33-37); MEAN CORPUSCULAR VOLUME 94.4 fL (80-94); MONOCYTES # (AUTO) 0.6 K/uL (0.8-1.0); MONOCYTES % (AUTO) 5.4 % (1.7-9.3); NEUTROPHILS % (AUTO) 86.4 % (42.2-75.2); PLATELET COUNT (AUTO) 183 K/uL (140-450); RED BLOOD CELL COUNT(AUTO) 2.16 MIL/uL (4.20-6.10); RED CELL DISTRIBUTION WIDTH 18.9 % (11.6-13.7); WHITE BLOOD COUNT (AUTO) 10.4 K/uL (4.8-10.8)
[2018-09-28 13:17] LABS: HEMOGLOBIN 6.8 g/dL (12.0-18.0)
[2018-09-28 13:24] LABS: ALBUMIN 1.3 g/dL (3.4-5.0); ASPARTATE AMINOTRANSFERASE 42 U/L (15-37); CARBON DIOXIDE 23.7 mmol/L (21-32); CHLORIDE 112 mmol/L (98-107); CREATININE 1.3 mg/dL (0.7-1.3); GLUCOSE 158 mg/dL (74-106); POTASSIUM 3.7 mmol/L (3.5-5.1); SODIUM SERUM 140 mmol/L (136-145); TOTAL BILIRUBIN 0.3 mg/dL (0.0-1.0); UREA NITROGEN, BLOOD 30 mg/dL (7-18)
[2018-09-28] MEDS: NOREPINEPHRINE 8 MG in DEXTROSE 5% 250 ML IV PRN (13:25)
[2018-09-28 13:27] LABS: PROTHROMBIN TIME 11.7 secs (10.8-13.4)
[2018-09-28] MEDS ORDERED: NS IV SCH (14:00)
[2018-09-28] MEDS ORDERED: FLUCONAZOLE 100 MG/NS PREMIX 50 ML IV SCH (14:00)
[2018-09-28] MEDS ORDERED: FLUCONAZOLE IV SCH (14:00)
[2018-09-28] MEDS ORDERED: CALCIUM CARB/VIT-D 500 MG/200 IU 1 TAB NG SCH (14:00)
--- NOTE | 2018-09-28 14:20 | NUR ---
PT IS ON NGT WITH LWS, COFFEE BROWN EMESIS NOTED, DR. OCTTRELL MADE AWARE, IT IS OK TO HOLD TYLENOL AND BENADRYL BEFORE BLOOD TRANSFUSION, CLOSE MONITOR FOR S/S OF ALLERGIC REACTION.
[2018-09-28] MEDS ORDERED: diphenhydrAMINE 12.5 MG/5 ML UDC NG SCH (14:30)
[2018-09-28] MEDS ORDERED: ACETAMINOPHEN 650 MG/20.3 ML UDC GT SCH (14:30)
--- NOTE | 2018-09-28 14:35 | NUR ---
PRBC STARTED WITH 40ML/HR, TEMP 99.0F, HR 117, BP 83/39, RR 16, O2 SAT 92%, WILL CONTINUE TO MONITOR.
[2018-09-28] MEDS: VANCOMYCIN 500 MG in DEXTROSE 5% 100 ML IV SCH (15:36)
--- NOTE | 2018-09-28 15:43 | NUR ---
BREATHING TX NOT ADMINISTERED DUE TO ELEVATED PULSE. FIO2 INCREASED TO 55% DUE TO SPO2 89%-90%. NURSE MADE AWARE.
--- NOTE | 2018-09-28 16:00 | NUR ---
NO S/S OF DISTRESS, PM CARE AND ORAL CARE PROVIDED, F/C CARE PROVIDED, POSITION CHANGED FOR OFF LOAD PRESSURE.
--- NOTE | 2018-09-28 16:50 | NUR ---
DR. BLAND CAME IN TO SEE PT AT BEDSIDE, UPDATED PT'S CONDITION, WILL FOLLOW UP WITH NEW ORDERS.
--- NOTE | 2018-09-28 17:12 | NUR ---
PT REMAINS ON DOCUMENTED VENT SETTINGS. FAMILY IS BEDSIDE. VENT ALARMS REMAIN ON AND FUNCTIONING. ETT IS SECURE WITH PATENT AIRWAY. PT SUCTIONED OBTAINED SMALL AMOUNT OF THICK WHITE SECRETIONS. PT NOT IN ANY DISTRESS AT THIS TIME.
[2018-09-28] MEDS ORDERED: ALBUMIN HUMAN 25% 100 ML IV SCH (18:00)
--- NOTE | 2018-09-28 18:19 | NUR ---
DR. DANIELLE CAME IN TO SEE PT AT BEDSIDE, UPDATED PT'S CONDITION, WILL FOLLOW UP WITH NEW ORDERS.
[2018-09-28] MEDS: MIDODRINE 5 MG TAB PO SCH (18:20)
--- NOTE | 2018-09-28 18:21 | NUR ---
BP 120/54, HR 95, RR 15, O2 SAT 93%, DR. DANIELLE SAID OK TO HOLD MIDODRINE AT THIS TIME.
--- NOTE | 2018-09-28 19:08 | NUR ---
REPORT GIVEN TO FORGE HAND NURSE AT BEDSIDE FOR CONTINUE OF CARE, PT IS IN STABLE CONDITION AT THIS TIME.
--- NOTE | 2018-09-28 19:15 | NUR ---
RECEIVED REPORT FROM AM SHIFT. PT SEDATED. WITHDRAWS TO PAIN. RASS -3 NOTED. AFEBRILE. ON BILAT WRIST RESTRAINTS. LUNG SOUNDS CLEAR. ETT TO VENT. VENT SETTINGS FIO2 55 VT 450 RATE 10 PEEP 5. ON LWD. NPO AT THIS TIME. LEFT NARE NGT. F/C IN PLACE. LEFT EXTERNAL JUGULAR 18G. PATENT INTACT. RIGHT HAND 22G PATENT INTACT. RIGHT IJ PATENT INTACT. ON LEVOPHED 5MCG, VERSED 1MF, MORPHINE 1MG. SKIN NON INTACT. SURGICAL INCISION TO MIDLINE ABD. 34 JO ANN NOTED. BED IN LOWEST POSITION. HOB 30. WILL CONTINUE TO MONITOR.
--- NOTE | 2018-09-28 19:31 | NUR ---
RCV'D PT INTUBATED WITH 7.5 ETT AT 22 CM AT LIP. ETT IN PLACE AND SECURED WITH ANCHOR-FAST. VENT SETTINGS CHARTED. VENT IS CONNECTED TO RED OUTLET. ALARMS AUDIBLE. AMBU BAG AT BEDSIDE. NO SOB OR DISTRESS NOTED. HHN TX GIVEN WITH NO ADVERSE REACTION. WILL CONTINUE TO MONITOR.
[2018-09-28] MEDS ORDERED: AMINO ACIDS IV SCH ×4 (20:00)
[2018-09-28] MEDS ORDERED: DEXTROSE IV SCH ×4 (20:00)
[2018-09-28] MEDS ORDERED: MULTIVITAMIN IV SCH ×4 (20:00)
[2018-09-28] MEDS ORDERED: [UNRECOGNIZED DRUG - OTHER] IV SCH ×4 (20:00)
--- NOTE | 2018-09-28 20:39 | NUR ---
FAMILY AT BEDSIDE AT THIS TIME
--- NOTE | 2018-09-28 21:03 | NUR ---
RT AT BEDSIDE AT THIS TIME
--- NOTE | 2018-09-28 21:10 | NUR ---
VENT CHECK. SON AT BEDSIDE. NO SOB OR DISTRESS NOTED. SXN'D SML AMT OF THIN YELLOW SECRETIONS. PT QUIET. BD RHONCHI CLEARED AFTER SXN. WILL CONTINUE TO MONITOR.
--- NOTE | 2018-09-28 22:47 | NUR ---
PT REPOSITIONED AT THIS TIME. NO SIGNS OF ACUTE DISTRESS NOTED.
--- NOTE | 2018-09-28 23:02 | NUR ---
INCREASED PT'S FIO2 TO 60% DUE TO PT'S SPO2 91%. SXN'D PT. NO DISTRESS NOTED. SON AT BEDSIDE. WILL CONTINUE TO MONITOR.
--- NOTE | 2018-09-28 23:31 | NUR ---
TITRATED LEVOPHED FROM 5MCG TO 3MCG AT THIS TIME.
--- NOTE | 2018-09-28 23:48 | NUR ---
PT AFEBRILE AT THIS TIME. NO SIGNS OF ACUTE DISTRESS NOTED.
[2018-09-29] VITALS (105 sets, daily range): BP systolic 86–167; BP diastolic 1–91
--- NOTE | 2018-09-29 01:21 | NUR ---
PT RUNNING TEMP OF 100.5 AT THIS TIME. COOLING MEASURES IMPLEMENTED
[2018-09-29] MEDS: ACETAMINOPHEN 650 MG/20.3 ML UDC GT PRN ×2 (01:23→12:17)
[2018-09-29] MEDS: ALBUTEROL SULFATE/IPRATROPIU 3 ML SOL IH SCH ×7 (01:39→23:04)
--- NOTE | 2018-09-29 02:13 | NUR ---
TEMPERATURE 99.3 AT THIS TIME. WILL CONTINUE TO MONITOR,
[2018-09-29] MEDS: NACL 0.9% 1,000 ML IV SCH (02:56)
--- NOTE | 2018-09-29 03:14 | NUR ---
TITRATED LEVOPHED TO 5MCG/KG/MIN AT THIS TIME
--- NOTE | 2018-09-29 03:37 | NUR ---
RT AT BEDSIDE AT THIS TIME
[2018-09-29 04:19] LABS: EOSINOPHILS # (AUTO) 0.8 K/uL (0-0.4); HEMOGLOBIN 8.7 g/dL (12.0-18.0); LYMPHOCYTES # (AUTO) 0.4 K/uL (2.0-11.5); LYMPHOCYTES % (AUTO) 2.5 % (20.5-51.1); MEAN CORPUSCULAR HEMOGLOBIN 31 pg (27-31); MEAN CORPUSCULAR HGB CONC 33 g/dL (33-37); MEAN CORPUSCULAR VOLUME 92.8 fL (80-94); MONOCYTES # (AUTO) 0.6 K/uL (0.8-1.0); MONOCYTES % (AUTO) 4.4 % (1.7-9.3); NEUTROPHILS # (AUTO) 12.2 K/uL (1.8-7.7); NEUTROPHILS % (AUTO) 87.1 % (42.2-75.2); PLATELET COUNT (AUTO) 199 K/uL (140-450); RED BLOOD CELL COUNT(AUTO) 2.81 MIL/uL (4.20-6.10); RED CELL DISTRIBUTION WIDTH 17.4 % (11.6-13.7)
[2018-09-29 04:47] LABS: ALBUMIN 1.9 g/dL (3.4-5.0); MAGNESIUM 2.1 mg/dL (1.8-2.4); PHOSPHORUS 2.4 mg/dL (2.5-4.9)
--- NOTE | 2018-09-29 05:11 | NUR ---
VENT CHECK. PT ASLEEP. NO SOB OR DISTRESS NOTED.
[2018-09-29] MEDS: CALCIUM CARB/VIT-D 500 MG/200 IU 1 TAB NG SCH (05:18)
[2018-09-29] MEDS: PIPER/TAZO 3.375GM/D5W PREMIX 50 ML IV SCH ×4 (05:18→23:13)
[2018-09-29 05:33] LABS: ANION GAP 10.5 (8-16); CARBON DIOXIDE 22.4 mmol/L (21-32); CHLORIDE 113 mmol/L (98-107); GLUCOSE 187 mg/dL (74-106); POTASSIUM 3.9 mmol/L (3.5-5.1); SODIUM SERUM 142 mmol/L (136-145)
[2018-09-29 05:34] LABS: CREATININE 1.2 mg/dL (0.7-1.3); UREA NITROGEN, BLOOD 24 mg/dL (7-18)
--- NOTE | 2018-09-29 06:15 | NUR ---
TRITRATED LEVOPHED TO 6MCG/KG/MIN AT THIS TIME.
--- NOTE | 2018-09-29 06:24 | NUR ---
RECEIVED CRIT LAB TROPONIN I 0.151. DR. WILLARD MADE AWARE
[2018-09-29] MEDS: BLOOD GLUCOSE MONITORING 1 DEV DEV MC SCH ×3 (06:29→17:49)
[2018-09-29] MEDS: INSULIN LISPRO SLIDING SCALE 100 UNITS/ML VIAL SUBQ PRN ×3 (06:30→17:50)
[2018-09-29] MEDS: MIDODRINE 5 MG TAB PO SCH ×3 (06:56→19:00)
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
--- NOTE | 2018-09-29 07:07 | NUR ---
ENDORSED CARE TO INCOMING SHIFT FOR CONTINUITY OF CARE
--- NOTE | 2018-09-29 07:30 | NUR ---
RECEIVED REPORT FROM HOUSEKEEPER CLEANING COOKING NURSE AT BEDSIDE, PT IS SEDATED, UNABLE TO FOLLOW COMMANDS, FLACC 0, VSS, TEMP 99.6. NSR/SINUS TACHY ON ERISA ATTORNEY. ETT TO VENT W/ SETTINGS: AC 10, TV 450, FIO2 45% PEEP 5, CLEAR LUNG SOUND BILATERALLY. O2 SAT AT 92 %, BREATHING EVEN AND UNLABORED. SOFT ABDOMEN WITH HYPOACTIVE BOWEL SOUNDS, SURGICAL WOUND TO MID ABDOMEN, COVERED WITH DRESSING, CLEAN, DRY AND INTACT. NGT IN PLACE, NGT PLACEMENT CONFIRMED, CONNECTED TO SUCTION. DARK BROWN DRAINAGE NOTED. CENTRAL LINE TO RIJ, TLC, PATENT, RUNNING VERSED AT 2 MG/HR, MORPHINE AT 2 MG/HR, TPN AT 50ML/HR, CVP AT 14. IV SITE TO RIGHT HAND, 22GA, RUNNING NS AT 50ML/HR, IV SITE TO LEFT EJ, 18GA, PATENT AND SALINE LOCKED. MCKNIGHT CATHETER IN PLACE DRAINING YELLOW URINE W/ SEDIMENTS VIA GRAVITY. SKIN IS DRY AND WARM TO TOUCH. SCDS IN PLACE FOR VTE PROPHYLAXIS, HOB ELEVATED TO 30 DEGREES, MU IN LOWEST POSITION, CALL LIGHT WITHIN REACH, NO S/S OF DISTRESS, WILL CONTINUE TO MONITOR. Addendum: 09/29/18 at 1011 by Haylee Bonilla RN LEVOPHED ALSO RUNNING AT 6 MCG/MIN,
--- NOTE | 2018-09-29 08:20 | NUR ---
DR. YATES AND RESIDENT GROUP IN TO SEE PT. PER DR. COTTRELL, OK TO GIVE PO/GT MEDS THROUGH NGT AND WILL CHANGE ORDER TO NPO EXCEPT MEDS.
[2018-09-29] MEDS: ATORVASTATIN 20 MG TAB PO SCH (08:35)
[2018-09-29] MEDS: SODIUM PHOS / POTASSIUM PHOS 1 PKT PDR NG SCH (08:35)
[2018-09-29] MEDS: LACTOBACILLUS RHAMNOSUS GG 1 EACH CAP PO SCH (08:35)
[2018-09-29] MEDS: PANTOPRAZOLE 40 MG INJ VIAL IVP SCH (08:35)
--- NOTE | 2018-09-29 09:10 | NUR ---
DR. VALLES IN TO SEE AND EXAMINE PT. PER DR. VALLES, STOP SEDATION AND PUT PT ON CPAP FOR ONE HOUR. ORDER NOTED. RT AT BEDSIDE AWARE.
--- NOTE | 2018-09-29 09:20 | NUR ---
PLACED PT ON CPAP 5 PS10 FIO[address] VALLES
--- NOTE | 2018-09-29 09:41 | NUR ---
PT DESAT RETURNED TO A\C PTS NIF ON CPAP WAS -12 VC 442 Addendum: 09/29/18 at 0945 by Georgette Vogel RT INCREASED FIO2 TO 55
--- NOTE | 2018-09-29 10:00 | NUR ---
FAMILY AT BEDSIDE. NO S/SX OF ACUTE DISTRESS NOTED AT THIS TIME. ALL SAFETY PRECAUTIONS IN PLACE.
[2018-09-29] MEDS: MORPHINE SULFATE 100 MG in NACL 0.9% 90 ML IV PRN (10:15)
[2018-09-29] MEDS: MIDAZOLAM MDV 100 MG in NACL 0.9% 80 ML IV PRN (10:17)
[2018-09-29] MEDS ORDERED: VANCOMYCIN PER PHARMACY MC PRN (10:30)
--- NOTE | 2018-09-29 11:58 | NUR ---
DR. COTTRELL IN THE UNIT SPEAKING WITH FAMILY MEMBERS. DR. COTTRELL AWARE OF PT BEING TACHYCARDIC- HR 117. NO NEW ORDER AT THIS TIME.
--- NOTE | 2018-09-29 12:32 | NUR ---
PT SEEN AND EXAMINED BY DR. THAPA. WILL FOLLOW UP ON ORDERS.
[2018-09-29] MEDS: GAUZE TP SCH (12:34)
[2018-09-29] MEDS: VANCOMYCIN 500 MG in DEXTROSE 5% 100 ML IV SCH (14:33)
[2018-09-29] MEDS: NOREPINEPHRINE 8 MG in DEXTROSE 5% 250 ML IV PRN (14:55)
--- NOTE | 2018-09-29 15:00 | NUR ---
O2 SAT AT 86-87% AT THIS TIME. RT MADE AWARE. HR 115, BP 101/57, RR 12. NO SIGNS OF ACUTE DISTRESS NOTED. SON AT BEDSIDE. WILL CONTINUE TO MONITOR.
--- NOTE | 2018-09-29 15:05 | NUR ---
DR. BLAND IN TO SEE AND EXAMINE PT. WILL FOLLOW UP WITH NEW ORDERS.
--- NOTE | 2018-09-29 15:10 | NUR ---
PER MASONRY CONTRACTOR, CT MACHINE IS IN REPAIR AT THIS TIME. DR. BLAND MADE AWARE.
--- NOTE | 2018-09-29 15:13 | NUR ---
FIO2 INCREASED TO 100 PT DESAT
--- NOTE | 2018-09-29 15:38 | NUR ---
09/29/18 RD FOLLOW UP COMPLETED PLEASE REFER TO NUTRITION ASSESSMENT UNDER CARE ACTIVITY FOR ESTIMATED NUTRITIONAL NEEDS. 1. CONTINUE TPN D 15%, AA 3.25%, LIPID 10% 180 ML, 50 ML/HR X 24 HR -THIS PROVIDES 948 KCAL, 39 GM OF PROTEIN, TOTAL VOLUME OF 1200ML, AND GIR 1.9 MG CHO/KG/MIN. IT MEETS 66% OF ENERGY NEEDS AND 65% OF PROTEIN NEEDS. 2. CONSIDER ADVANCE TPN RATE IF APPROPRIATE 3. RECOMMEND SWALLOW EVALUATION WHEN PT IS MEDICALLY STABLE TO RECEIVE ORAL NUTRITION 4. RECOMMEND ENSURE BID WHEN PATIENT IS STABLE FOR PO INTAKE 5. RD TO FOLLOW-UP 2-3 DAYS, HIGH RISK NICOLAS DAU[address] RD
--- NOTE | 2018-09-29 15:45 | NUR ---
CHEST X RAY AND XR OF ABDOMEN COMPLETED. PT NOT IN ANY DISTRESS AT THIS TIME. FAMILY AT BEDSIDE. WILL CONTINUE TO MONITOR.
--- NOTE | 2018-09-29 16:33 | NUR ---
COLLAR POINTER AT BEDSIDE FOR US ABDOMEN. VITAL SIGNS STABLE. FAMILY AT BEDSIDE. WILL CONTINUE TO MONITOR.
--- NOTE | 2018-09-29 18:30 | NUR ---
DR. BEACH IN THE UNIT, UPDATES GIVEN ON PT'S CONDITION. WILL FOLLOW UP ON ORDERS.
--- NOTE | 2018-09-29 19:16 | NUR ---
REPORT GIVEN TO RANGER AIDE RN FOR CONTINUITY OF CARE. PT NOT IN ANY DISTRESS AT THIS TIME.
--- NOTE | 2018-09-29 19:20 | NUR ---
RECEIVED REPORT FROM DAY NURSE NO ACUTE DISTRESS NOTED.
[2018-09-29] MEDS: DEXTROSE 50% IV SCH ×5 (19:40)
[2018-09-29] MEDS: INSULIN REGULAR IV SCH ×5 (19:40)
[2018-09-29] MEDS: HUMAN IV SCH ×5 (19:40)
[2018-09-29] MEDS: [UNRECOGNIZED DRUG - OTHER] IV SCH ×5 (19:40)
[2018-09-29] MEDS: MULTIVITAMIN IV SCH ×5 (19:40)
--- NOTE | 2018-09-29 19:45 | NUR ---
PT HAS EYES CLOSED, FLACC 0, PT UNABLE TO RESPOND TO VERBAL PROMPTS; RESPONDS TO PAINFUL STIMULI. PERRL SLUGGISH 3MM. 7.5 ETT TO VENT @ 100% FIO2, SCANT BROWN SECRETIONS NOTED. LUNGS CLEAR/DIMINISHED BREATH SOUNDS. ST WITH PACS ON MONITOR, +1 BILATERAL RADIAL/PEDAL PULSES. NO EDEMA NOTED. ABD SOFT NON DISTENDED, NGT TO R NARES LOW INTERMITTENT SUCTION. NPO EXCEPT MEDS @ THIS TIME. MCKNIGHT CATH IN PLACE, CLEAR YELLOW URINE NOTED. MID ABD INCISION WIHT JO ANN NOTED, DRESSING CDI @ THIS TIME. SCDS IN PLACE. TRIPLE LUMEN CENTRAL LINE TO R IJ NOTED. CVP MONITORING. PT ON MORPHINE @ 1MG/HR FOR PAIN AND VERSED @ 1MG/HR FOR SEDATION. PT ON LEVOPHED @ 6 MCG/KG/MIN. TPN INFUSING. BED LOCKED AND IN LOWEST POSITION. NO S/S OF ACUTE DISTRESS @ THIS TIME. WILL CONTINUE TO MONITOR.
[2018-09-29] MEDS: BISACODYL 10 MG SUPP RC SCH (22:15)
--- NOTE | 2018-09-29 22:25 | NUR ---
SPOKE WITH DR DON AND UPDATED REGARDING PT CONDITION, LABS IN AM. WILL CONTINUE TO OBSERVE.
[2018-09-30] VITALS (106 sets, daily range): BP systolic 59–133; BP diastolic 33–67
--- NOTE | 2018-09-30 00:22 | NUR ---
VAP ORAL CARE DONE, PT TURNED AND REPOSITIONED.
--- NOTE | 2018-09-30 02:09 | NUR ---
PT TURNED AND REPOSITIONED. FLACC 0, NO S/S OF ACUTE DISTRESS NOTED. WILL CONTINUE TO OBSERVE.
[2018-09-30] MEDS: ALBUTEROL SULFATE/IPRATROPIU 3 ML SOL IH SCH ×6 (02:59→23:05)
--- NOTE | 2018-09-30 03:21 | NUR ---
NOTIFIED DR BEACH ABOUT PT CONDITION. PT NOT STABLE TO TRANSFER TO RADIOLOGY FOR CT SCAN ON 100% FIO2 VENTILATOR. AWARE. OK TO HOLD FOR NOW.
[2018-09-30] MEDS: ACETAMINOPHEN 650 MG/20.3 ML UDC GT PRN (04:00)
[2018-09-30 05:37] LABS: PHOSPHORUS 3.3 mg/dL (2.5-4.9)
[2018-09-30] MEDS: PIPER/TAZO 3.375GM/D5W PREMIX 50 ML IV SCH ×4 (05:41→23:42)
[2018-09-30] MEDS: CALCIUM CARB/VIT-D 500 MG/200 IU 1 TAB NG SCH (05:42)
[2018-09-30 05:46] LABS: HEMATOCRIT 32.6 % (36-52); HEMOGLOBIN 10.6 g/dL (12.0-18.0); MEAN CORPUSCULAR HEMOGLOBIN 31 pg (27-31); MEAN CORPUSCULAR HGB CONC 33 g/dL (33-37); MEAN CORPUSCULAR VOLUME 94.2 fL (80-94); PLATELET COUNT (AUTO) 244 K/uL (140-450); RED BLOOD CELL COUNT(AUTO) 3.46 MIL/uL (4.20-6.10); RED CELL DISTRIBUTION WIDTH 17.7 % (11.6-13.7); WHITE BLOOD COUNT (AUTO) 23.8 K/uL (4.8-10.8)
[2018-09-30] MEDS: MIDODRINE 5 MG TAB PO SCH ×3 (06:05→19:01)
[2018-09-30 06:14] LABS: ALBUMIN 1.8 g/dL (3.4-5.0); ANION GAP 9.9 (8-16); ASPARTATE AMINOTRANSFERASE 25 U/L (15-37); CARBON DIOXIDE 25.1 mmol/L (21-32); CHLORIDE 110 mmol/L (98-107); CREATININE 1.5 mg/dL (0.7-1.3); GLUCOSE 192 mg/dL (74-106); HDL CHOLESTEROL 13 mg/dL (40-60); SODIUM SERUM 141 mmol/L (136-145); TOTAL BILIRUBIN 0.4 mg/dL (0.0-1.0); TRIGLYCERIDES 60 mg/dL (30-150); UREA NITROGEN, BLOOD 22 mg/dL (7-18)
--- NOTE | 2018-09-30 06:15 | NUR ---
DR VALLES @ BEDSIDE. CXR ORDERED. NO FURTHER ORDERS @ THIS TIME.
[2018-09-30 06:17] LABS: LYMPHOCYTES % (MANUAL) 4 % (20-46); MONOCYTES % (MANUAL) 4 % (5-12)
[2018-09-30 06:18] LABS: EOSINOPHILS % (MANUAL) 1 % (0-4)
[2018-09-30] MEDS: BLOOD GLUCOSE MONITORING 1 DEV DEV MC SCH ×5 (06:43→23:43)
[2018-09-30] MEDS: INSULIN LISPRO SLIDING SCALE 100 UNITS/ML VIAL SUBQ PRN ×3 (06:46→23:45)
[2018-09-30 06:48] LABS: LDL (CALC) 1 mg/dL (60-100)
--- NOTE | 2018-09-30 06:50 | NUR ---
REC'D PT ON [place] VENT SETTINGS AC 10 VT 450 PEEP 5 FIO2 100% ALARMS ON AND AUDIBLE AMBU BAG AT SIDE OF VENT AND VENT IS PLUGGED INTO RED OUTLET, I\L TX GIVEN WITH DUONEB 3ML WITH NO ADVERSE REACTION POST TX B\S ARE COARSE BILATERALLY, SXN PT MODERATE AMT OF PINK TINT FROTHY SECRETIONS, PT IS ORALLY INTUBATED WITH 7.5 ET TUBE AT 22 CM LIP AND SKIN INTEGRITY IS INTACT PT IS SLEEPING
--- NOTE | 2018-09-30 07:30 | NUR ---
ENDORSED CARE TO DAY SHIFT FOR CONTINUITY OF CARE.
[2018-09-30] MEDS ORDERED: FUROSEMIDE 40 MG/4 ML VIAL IVP SCH (07:45)
[2018-09-30] MEDS: NOREPINEPHRINE 8 MG in DEXTROSE 5% 250 ML IV PRN ×2 (08:05→17:04)
[2018-09-30] MEDS: LACTOBACILLUS RHAMNOSUS GG 1 EACH CAP PO SCH (08:21)
[2018-09-30] MEDS: PANTOPRAZOLE 40 MG INJ VIAL IVP SCH (08:21)
[2018-09-30] MEDS: SODIUM PHOS / POTASSIUM PHOS 1 PKT PDR NG SCH (08:21)
[2018-09-30] MEDS: ATORVASTATIN 20 MG TAB PO SCH (08:21)
--- NOTE | 2018-09-30 08:30 | NUR ---
PT HAS EYES CLOSED, FLACC 0, PT UNABLE TO RESPOND TO VERBAL PROMPTS, DOES NOT RESPOND TO PAINFUL STIMULI. PERRL SLUGGISH 2MM. 7.5 ETT TO VENT @ 100% FI02, 450 TD, RATE OF 10, 80 FLOW, PEEP OF 5. WHEEZING HEARD ON UPPER LOBES, S1 S2 NOTED. +1 BILATERAL PEDAL AND RADIAL PULSES. GENERALIZED NONPITTING EDEMA, SCROTAL EDEMA NOTED. ABD SOFT NONDISTENDED. MID ABD INCISION WITH JO ANN. NGT TO R NARES LOW INTERMITTENT SUCTION. NPO EXCEPT MEDS @ THIS TIME. MCKNIGHT CATHETER IN PLACE WITH CLEAR YELLOW URINE. TRIPLE LUMEN CENTRAL LINE TO R IJ. CVP MONITORING. PT ON MORPHINE @ 2 MG/HR, VERSED @1MG, LEVOPHED @16MCG/KG/MIN AND RASS -3. TPN INFUSING, BED LOCKED AND IN LOWEST POSITION. HOB ELEVATED AT 30 DEGREES. SAFETY AND BED ALARMS ASSESSED, SIDERAILS UP. WILL CONTINUE TO MONITOR.
--- NOTE | 2018-09-30 08:31 | NUR ---
DR. YATES AND RESIDENT PHYSICIANS AT BEDSIDE, UPDATED ON PATIENT'S CONDITION. WILL FOLLOW UP ON ANY ORDERS.
--- NOTE | 2018-09-30 09:41 | NUR ---
PATIENT FAMILY AT BEDSIDE, UPDATED ON PATIENT'S CONDITION. WILL FOLLOW UP ON ANY ORDERS.
[2018-09-30] MEDS ORDERED: HUMAN IV SCH ×10 (09:59→20:00)
[2018-09-30] MEDS ORDERED: INSULIN REGULAR IV SCH ×10 (09:59→20:00)
[2018-09-30] MEDS ORDERED: DEXTROSE 50% IV SCH ×10 (09:59→20:00)
[2018-09-30] MEDS ORDERED: [UNRECOGNIZED DRUG - OTHER] IV SCH ×10 (09:59→20:00)
[2018-09-30] MEDS ORDERED: MULTIVITAMIN IV SCH ×10 (09:59→20:00)
--- NOTE | 2018-09-30 10:45 | NUR ---
PER DR. COTTRELL' ORDER, DO NOT CONTINUE TO TITRATE LEVOPHED. ADD WALLACE FOR HYPOTENSION. PHARMACY IS INFORMED.
[2018-09-30] MEDS: PHENYLEPHRINE 10 MG in NACL 0.9% 250 ML IV PRN ×2 (10:59→14:43)
[2018-09-30] MEDS ORDERED: COMMUNICATION ORDER MC SCH (12:00)
[2018-09-30] MEDS: HYDROCORTISONE NA SUCC 100 MG/2 ML VIAL IV SCH ×3 (12:31→23:42)
[2018-09-30] MEDS: GAUZE TP SCH (13:00)
[2018-09-30] MEDS: MISC INJECTION 1 EA in NACL 0.9% 100 ML IV SCH ×3 (13:20→23:44)
--- NOTE | 2018-09-30 13:30 | NUR ---
PT's LEFT EJ TUBE DISPLACED. COVERED SITE WITH DRESSING. NO SIGNS OF BLEEDING OR INFECTION NOTED.
--- NOTE | 2018-09-30 13:44 | NUR ---
DR. BLAND AND DR. CAMARA IN TO SEE PATIENT, UPDATED ON PATIENT'S CONDITION. WILL FOLLOW UP ON ANY ORDERS
--- NOTE | 2018-09-30 13:59 | NUR ---
DISCUSS POC WITH DR. CAMARA, STATES TO QUADRUPLE CONCENTRATION FOR VASOPRESSORS SO THAT PATIENT GETS ONLY 100ML/HR AND DISCONTINUE MORPHINE DRIP.
[2018-09-30] MEDS ORDERED: ALBUMIN HUMAN 25% 50 ML IV SCH (14:00)
[2018-09-30] MEDS ORDERED: POTASSIUM CHLORIDE 20% 40 MEQ/15 ML UDC GT SCH (14:30)
--- NOTE | 2018-09-30 14:30 | NUR ---
PT's CENTRAL LINE DRESSING CHANGE ON RIGHT IJ PER DOCTORS ORDER. SIGNED, DATED, AND TIMED. NO SIGNS OF DISTRESS.
[2018-09-30] MEDS ORDERED: FUROSEMIDE 20 MG/2 ML VIAL IVP SCH (17:00)
--- NOTE | 2018-09-30 17:00 | NUR ---
PT RECEIVED VAP PREVENTION ORAL CARE. PATIENT REPOSITIONED, AND SCROTAL EDEMA INSPECTED.
[2018-09-30] MEDS: METOCLOPRAMIDE 10 MG/10 ML SYRP UDC GT SCH (17:08)
[2018-09-30] MEDS ORDERED: PHENYLEPHRINE 40 MG in NACL 0.9% 250 ML IV PRN (18:00)
[2018-09-30] MEDS ORDERED: NOREPINEPHRINE 16 MG in DEXTROSE 5% 250 ML IV PRN (18:00)
[2018-09-30] MEDS: VANCOMYCIN 500 MG in DEXTROSE 5% 100 ML IV SCH (19:02)
--- NOTE | 2018-09-30 19:30 | NUR ---
RECEIVED PATIENT ENDOTRACHEALLY INTUBATED WITH 7.5 ETT. ETT 21 CM AT THE LIP LINE. PATIENT DEMONSTRATING AUDIBLE ORAL GURGLING NOISES. ORALLY SUCTIONED SCANT AMOUNT OF THIN WHITE SECRETIONS. CUFF INFLATED AND CUFF INTEGRITY MAINTAINED. AIRWAY SECURE AND PATENT. SUCTIONED SCANT AMOUNT OF THIN, PINK TINGED SECRETIONS THROUGH ETT. VENT CHECK DONE. VENT ALARMS ON AND AUDIBLE. VENT ALARM PARAMETERS ADJUSTED. VENT PLUGGED INTO RED OUTLET. AMBU BAG AT BEDSIDE. SCHEDULED BREATHING TREATMENT ADMINISTERED. TOLERATED TX WITHOUT ADVERSE SIDE EFFECTS. VENTILATOR FLOW RATE ADJUSTED FROM 80L/MIN TO 35L/MIN TO MAINTAIN ADEQUATE I:E RATIO AND DECREASE PEAK PRESSURES. PATIENT DESATURATING TO 75%. PAGED DR. RAYMOND. PER DR. RAYMOND ADJUST VENT SETTINGS FOLLOWS: AC/VC 550, 12, +7, 100%. DRAW ABG IN ONE HOUR. PER DR. RAYMOND, JJAY TO ADVANCE ETT 2 CM PER CXR TAKEN THIS MORNING STATING ETT 5.3CM ABOVE ALLISON. VENT SETTINGS CHANGED PER ORDER. ETT ADVANCED.
--- NOTE | 2018-09-30 19:40 | NUR ---
SPOKE WITH RESPIRATORY THERAPIST ABOUT GURGLING SOUND, PT SUCTIONED VIA YANKEUR, MINIMAL SECRETIONS; ETT SUCTIONED SCANT WHITE SECRETIONS NOTED. PAGED DR RAYMOND REGARDING PT CONDITION, RT UPDATED REGARDING PT CONDTION, NEW ORDERS GIVEN. CXR, NEW VENT SETTINGS AND ABG. WILL CONTINUE TO OBSERVE.
--- NOTE | 2018-09-30 19:45 | NUR ---
PT HAS EYES CLOSED, FLACC 0, PT UNABLE TO RESPOND TO VERBAL PROMPTS. LETHARGIC, FLACCID IN BED. PERRL SLUGGISH 3MM. 7.5 ETT TO VENT @ 100% FIO2, SCANT BROWN SECRETIONS NOTED. LUNGS DIMINISHED BREATH SOUNDS. ST ON MONITOR, +1 BILATERAL RADIAL/PEDAL PULSES. 2-3+ EDEMA NOTED. ABD SOFT NON DISTENDED, NGT TO R NARES LOW INTERMITTENT SUCTION. NPO EXCEPT MEDS @ THIS TIME. MCKNIGHT CATH IN PLACE, CLEAR YELLOW URINE NOTED. MID ABD INCISION WITH JO ANN NOTED, DRESSING CDI @ THIS TIME. SCDS IN PLACE. TRIPLE LUMEN CENTRAL LINE TO R IJ NOTED. CVP MONITORING. PT ON LEVOPHED @ 18 MCG/KG/MIN. NEOSYNEPHRINE DRIP RUNNING@ 50 MCG/KG/MIN TPN INFUSING. BED LOCKED AND IN LOWEST POSITION. NO S/S OF ACUTE DISTRESS @ THIS TIME. WILL CONTINUE TO MONITOR.
[2018-09-30] MEDS: MULTIVITAMIN IV SCH ×5 (20:00)
[2018-09-30] MEDS: INSULIN REGULAR IV SCH ×5 (20:00)
[2018-09-30] MEDS: [UNRECOGNIZED DRUG - OTHER] IV SCH ×5 (20:00)
[2018-09-30] MEDS: HUMAN IV SCH ×5 (20:00)
[2018-09-30] MEDS: DEXTROSE 50% IV SCH ×5 (20:00)
[2018-09-30] MEDS: BISACODYL 10 MG SUPP RC SCH (20:09)
[2018-09-30] MEDS: THIAMINE 200 MG in NACL 0.9% 50 ML IV SCH (20:09)
[2018-09-30] MEDS ORDERED: THIAMINE 200 MG/2 ML VIAL ONE (20:11)
--- NOTE | 2018-09-30 21:20 | NUR ---
FOLLOW UP ABG DRAWN. RESULTS CALLED INTO DR. RAYMOND. FOLLOW UP CXR ORDERED TO RULE OUT PNEUMOTHORAX. NEW CXR DEMONSTRATES ETT 2 CM ABOVE ALLISON. NO PNUEMO PRESENT. PER DR. RAYMOND, ONCE CXR CONFIRMS THERE IS NO PNEUMO TO CHANGE VENT SETTINGS FOLLOWS: AC/VC 500, 16, +8, 100%. FOLLOW VENT CHANGES WITH ABG IN ONE HOUR AND PAGE WITH RESULTS. VENT CHANGES MADE. WILL CONTINUE TO MONITOR.
--- NOTE | 2018-09-30 22:00 | NUR ---
PT TURNED AND REPOSITIONED; TITRATING DOWN LEVOPHED TO 4 MCG, BP>90 WITH NEOSYNEPHRINE DRIP. FLACC 0 @ THIS TIME. WILL CONTINUE TO OBSERVE.
--- NOTE | 2018-09-30 22:55 | NUR ---
ABG DRAWN. RESULTS CALLED INTO DR. RAYMOND. PER DR. RAYMOND, MAKE NO VENT CHANGES AT THIS TIME. DRAW ABG TOMORROW AT 0800. NO RESPIRATORY DISTRESS NOTED. WILL CONTINUE TO MONITOR.
[2018-10-01] VITALS (35 sets, daily range): BP systolic 91–125; BP diastolic 42–63
[2018-10-01] MEDS: ALBUTEROL SULFATE/IPRATROPIU 3 ML SOL IH SCH ×3 (03:33→11:00)
--- NOTE | 2018-10-01 04:00 | NUR ---
AM CARE PROVIDED. PT TURNED AND REPOSITIONED
--- NOTE | 2018-10-01 04:04 | NUR ---
TITRATED FIO2 TO 90%, PULSE OX SAT 93%. RN AWARE. NO DISTRESS NOTED AT THIS TIME. WILL CONTINUE TO MONITOR.
[2018-10-01] MEDS: BLOOD GLUCOSE MONITORING 1 DEV DEV MC SCH (05:23)
[2018-10-01] MEDS: HYDROCORTISONE NA SUCC 100 MG/2 ML VIAL IV SCH (05:23)
[2018-10-01] MEDS: PIPER/TAZO 3.375GM/D5W PREMIX 50 ML IV SCH (05:23)
[2018-10-01] MEDS: INSULIN LISPRO SLIDING SCALE 100 UNITS/ML VIAL SUBQ PRN (05:24)
[2018-10-01] MEDS: CALCIUM CARB/VIT-D 500 MG/200 IU 1 TAB NG SCH (05:25)
[2018-10-01] MEDS: MISC INJECTION 1 EA in NACL 0.9% 100 ML IV SCH (05:30)
[2018-10-01 05:48] LABS: ANION GAP 12.2 (8-16); CARBON DIOXIDE 22.7 mmol/L (21-32); CHLORIDE 105 mmol/L (98-107); POTASSIUM 4.9 mmol/L (3.5-5.1); SODIUM SERUM 135 mmol/L (136-145)
[2018-10-01 05:49] LABS: CREATININE 3.4 mg/dL (0.7-1.3); GLUCOSE 224 mg/dL (74-106); UREA NITROGEN, BLOOD 34 mg/dL (7-18)
--- NOTE | 2018-10-01 07:00 | NUR ---
RECVD PATIENT ON VENT SETTINGS OF AC: RR 16, VT 500, PEEP OF 8, FIO2 90%. VENT WAS PLUGGED INTO RED OUTLET, AMBU BAG AT BEDSIDE. E.T. TUBE WAS AT 23CM OF THE PATIENTS GUMS SIZE 7.5 PATIENT HAD NO GAG REFLEX WHEN SUCTIONED.
--- NOTE | 2018-10-01 07:24 | NUR ---
endorsed care to day shift for continuity of care.
[2018-10-01] MEDS: MIDODRINE 5 MG TAB PO SCH (07:25)
[2018-10-01] MEDS: METOCLOPRAMIDE 10 MG/10 ML SYRP UDC GT SCH (07:25)
--- NOTE | 2018-10-01 07:30 | NUR ---
RECEIVED REPORT FROM NIGHTSHIFT NURSE SAMIRA FOR CONTINUITY OF CARE.
--- NOTE | 2018-10-01 08:08 | NUR ---
DR. YATES AND RESIDENTS AT BEDSIDE TO DISCUSS PT's CONDITION. CHECK NEURO FOR FIXED AND DILATED PUPILS AND CONSULT WITH NEUROLOGIST IF NEEDED. PT IS SLEEPING WITH WALLACE RUNNING AT 50 MCG, NS 5 ML's, TPN @ 50ML's, AND VITAL AF @ 10 ML's. CENTRAL LINE IN PLACE IN WAJ. 7.5 ETT TO VENT, LIPLINE 23 WITH FI02-90%, VT-500ML, RATE 16, FLOW 35, AND PEEP-8. PT IS SATURATING AT 100%. PT's SKIN IS WARM AND DRY WITH TEMP OF 98.8. PERRL 2 MM, PT CANNOT RESPOND TO PAINFUL STIMULI. NGT TO RIGHT NARES CONNECTED TO FEEDING. LUNG SOUNDS HEARD, WHEEZING ON EXPIRATORY UPPER LOBES, LOWER AND LATERAL LOBES DIMINISHED. HEART SOUNDS HEARD S1S2 REGULAR. CAPILLARY REFILL >3 ABDOMINAL INCISION INTACT AND OPEN TO AIR. ABDOMEN FIRM NONDISTENDED, BOWEL SOUNDS ARE HYPOACTIVE. URINE DARK YELLOW, LOW OUTPUT. MCKNIGHT CATH IN PLACE. SCROTUM EDEMATOUS. GENERALIZED EDEMA NONPITTING IN UPPER AND LOWER EXTREMITIES. SCD's IN PLACE. BILATERAL PEDAL PULSES +1. BED IN LOWEST POSITION, HOB 30 DEGREES, SAFETY CHECKS. PT FAMILY MEMBER AT BEDSIDE. WILL CONTINUE TO MONITOR.
--- NOTE | 2018-10-01 08:42 | NUR ---
VAP PREVENTION ORAL CARE GIVEN AND PATIENT SUCTIONED NEEDED.
[2018-10-01] MEDS: THIAMINE 200 MG in NACL 0.9% 50 ML IV SCH (08:54)
[2018-10-01] MEDS: PANTOPRAZOLE 40 MG INJ VIAL IVP SCH (08:57)
[2018-10-01] MEDS: SODIUM PHOS / POTASSIUM PHOS 1 PKT PDR NG SCH (08:58)
[2018-10-01] MEDS: ATORVASTATIN 20 MG TAB PO SCH (08:58)
[2018-10-01] MEDS: LACTOBACILLUS RHAMNOSUS GG 1 EACH CAP PO SCH (08:58)
--- NOTE | 2018-10-01 09:00 | NUR ---
PER PT's RESIDUAL > 400ML, DISCONTINUED NG TUBE FEEDING AND CONNECTED TO SUCTION. TPN STILL IN PLACE. DR. COTTRELL NOTIFIED.
--- NOTE | 2018-10-01 09:15 | NUR ---
SPOKE TO DR. VALLES IN REGARDS TO PATIENTS ABG RESULTS. NO NEW ORDERS WERE GIVEN, DR VALLES ASKED TO HAVE RESIDENTS CONTACT HIM.
--- NOTE | 2018-10-01 10:00 | NUR ---
DISCONTINUED PT'S WALLACE DUE TO INCREASED BLOOD PRESSURE. FLUSHED LINE WITH 10 ML NS.
[2018-10-01] MEDS ORDERED: SODIUM BICARBONATE 8.4% 100 MEQ in NACL 0.9% 1,000 ML IV SCH (10:30)
--- NOTE | 2018-10-01 10:30 | NUR ---
AND DR. COTTRELL AT PT'S BEDSIDE. UPDATED PT'S FAMILY ON PT CONDITION.
[2018-10-01] MEDS ORDERED: SODIUM BICARBONATE 8.4% PFS 50 MEQ/50 ML SYR IVP SCH (11:00)
[2018-10-01 11:12] LABS: BASOPHILS # (AUTO) 0.1 K/uL (0.00-0.22); BASOPHILS % (AUTO) 0.2 % (0.0-2.0); EOSINOPHILS % (AUTO) 0.2 % (0.0-4.0); HEMATOCRIT 26.5 % (36-52); HEMOGLOBIN 8.5 g/dL (12.0-18.0); LYMPHOCYTES # (AUTO) 0.2 K/uL (2.0-11.5); LYMPHOCYTES % (AUTO) 0.9 % (20.5-51.1); MEAN CORPUSCULAR HEMOGLOBIN 31 pg (27-31); MEAN CORPUSCULAR HGB CONC 32 g/dL (33-37); MEAN CORPUSCULAR VOLUME 95.1 fL (80-94); MONOCYTES # (AUTO) 0.9 K/uL (0.8-1.0); MONOCYTES % (AUTO) 4.3 % (1.7-9.3); NEUTROPHILS # (AUTO) 20.6 K/uL (1.8-7.7); NEUTROPHILS % (AUTO) 94.4 % (42.2-75.2); PLATELET COUNT (AUTO) 225 K/uL (140-450); RED BLOOD CELL COUNT(AUTO) 2.79 MIL/uL (4.20-6.10); RED CELL DISTRIBUTION WIDTH 17.9 % (11.6-13.7); WHITE BLOOD COUNT (AUTO) 21.8 K/uL (4.8-10.8)
--- NOTE | 2018-10-01 11:20 | NUR ---
DR. COTTRELL AT BEDSIDE, DISCUSSING WITH PT'S FAMILY TO REMOVE BREATHING TUBE TODAY.
--- NOTE | 2018-10-01 11:32 | NUR ---
PATIENTS FAMILY AT BEDSIDE REFUSED BREATHING TX FOR PATIENT, PATIENTS NURSE AWARE OF NON-TX
--- NOTE | 2018-10-01 11:45 | NUR ---
DR. COTTRELL AT PT's BEDSIDE WITH FAMILY, FAMILY GIVEN INFORMATION ON COMFORT CARE MEDICATIONS.
[2018-10-01] MEDS ORDERED: HYOSCYAMINE 0.125 MG TAB SL PRN (12:00)
[2018-10-01] MEDS ORDERED: LORazepam 2 MG/ML VIAL IVP PRN (12:00)
[2018-10-01] MEDS ORDERED: MORPHINE SULFATE 50 MG in NACL 0.9% 45 ML IV PRN (12:00)
--- NOTE | 2018-10-01 12:15 | NUR ---
DR. VALLADARES IN TO SEE PATIENT, SPOKE TO PT FAMILY, NO ORDERS AT THIS TIME
[2018-10-01] MEDS ORDERED: MORPHINE SULFATE 100 MG in NACL 0.9% 90 ML IV PRN (12:57)
[2018-10-01] MEDS ORDERED: ATROPINE 1% OP SOL 5ML BTL PO PRN (13:00)
[2018-10-01] MEDS ORDERED: PIPER/TAZO 2.25GM/D5W PREMIX 50 ML IV SCH (13:00)
--- NOTE | 2018-10-01 14:00 | NUR ---
PATIENT STARTED ON MORPHINE DRIP PER COMFORT CARE.
--- NOTE | 2018-10-01 14:28 | NUR ---
FNS SERVICES NO LONGER NEEDED, PLEASE CONTACT RD IF THERE ARE ANY CHANGES IN STATUS
[2018-10-01] MEDS ORDERED: VANCOMYCIN HCL 750 MG in DEXTROSE 5% 250 ML IV SCH (15:00)
--- NOTE | 2018-10-01 15:00 | NUR ---
PATIENT TRANSFERRED TO [facility]/TELE. ENDORSED REPORT TO SUSHMA KIMBALL.
--- NOTE | 2018-10-01 15:01 | NUR ---
RECEIVED BEDSIDE REPORT FROM ICU NURSE. PATIENT IS INTUBATED AND APHASIC. ON MORPHINE DRIP AT 2MG/HR RIJ . CLEAN, DRY AND INTACT. SKIN IS INTACT. TELE MONITOR IN PLACE. PER FAMILY NO MORE VITALS ON COMFORT MEASURES. PATIENT IS INCONTINENT. FALL RISK PROTOCOL IN PLACE. BED IN LOW POSITION. CALL LIGHT WITHIN REACH. WILL CONTINUE TO MONITOR THE PATIENT. FAMILY AT BEDSIDE.
--- NOTE | 2018-10-01 15:15 | NUR ---
PATIENT EXTUBATED BY RT. DR COTTRELL AT BEDSIDE. PATIENT TOLERATED WELL. WILL CONTINUE TO MONITOR THE PATIENT.
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
--- NOTE | 2018-10-01 15:38 | NUR ---
CALLED [facility], GAVE THEM PATIENTS INFORMATION, THEY CALLED BACK AND SAID PATIENT IS NOT A CANDIDATE FOR [employer]
--- NOTE | 2018-10-01 15:44 | NUR ---
CONTACTED [facility], GAVE THEM CALL BACK NUMBER AND INFORMATION ON THE PATIENT, THEY SAID THEY WILL CALL ME BACK
--- NOTE | 2018-10-01 17:00 | NUR ---
called coroners, they said that the case is still pending, will await their call
[2018-10-01] MEDS ORDERED: MAG SULF 2000 MG/WATER PREMIX 100 ML IV ONE (18:00)
--- NOTE | 2018-10-01 19:00 | NUR ---
gave bedside report to test baker nurse. endorsed test baker nurse to continue w coroners case and mortuary arrangements
--- NOTE | 2018-10-01 19:01 | NUR ---
SPOKE WITH PATIENT'S FAMILY SITTING INSIDE ROOM WHERE PATIENT LAYS, WANTS TO WAIT UNTIL BODY IS CLEARED OF FINANCE CONTROLLER BUT SINCE IT SEEMS IT'S TAKING A LONG TIME EXPRESSED THEIR DESIRE TO GO HOME AND REQUESTED TO BE CALLED ONCE PATIENT IS CLEARED, FOR THEM TO CALL MORTUARY.
--- NOTE | 2018-10-01 19:05 | NUR ---
FOLLOW UP WITH WIRE TECHNICIAN'S [place] OFFICE, [place] STATED WIRE TECHNICIAN WILL CALL ONCE AVAILABLE.
[2018-10-01] MEDS ORDERED: DEXTROSE 50% IV SCH ×5 (20:00)
[2018-10-01] MEDS ORDERED: MULTIVITAMIN IV SCH ×5 (20:00)
[2018-10-01] MEDS ORDERED: HUMAN IV SCH ×5 (20:00)
[2018-10-01] MEDS ORDERED: INSULIN REGULAR IV SCH ×5 (20:00)
[2018-10-01] MEDS ORDERED: [UNRECOGNIZED DRUG - OTHER] IV SCH ×5 (20:00)
[2018-10-01 20:42] LABS: LACTATE DEHYDROGENASE 317 IU/L (0-214)
--- NOTE | 2018-10-01 21:05 | NUR ---
FOLLOW UP WITH JAMIN STUDENT FINANCE ADVISOR WILL CALL WHEN AVAILABLE.
--- NOTE | 2018-10-01 21:30 | NUR ---
SPOKE WITH PRETZEL TWISTING MACHINE OPERATOR MANUEL VELOZ, .
--- NOTE | 2018-10-01 22:05 | NUR ---
LOCOMOTIVE INSPECTOR ROSELIA STATED BODY CAN BE RELEASE TO [employer] OR MORTUARY. INFORMED SON WILL CALL MORTUARY THEIR PREVIOUS REQUEST THAT THEY WILL BE THE ONE TO CALL MORTUARY.
--- NOTE | 2018-10-01 22:15 | NUR ---
SHARON CALLED AND SAID THIEM [employer]ORT[facility] WILL SIX PACK LOADER OPERATOR BODY IN AN HOUR.
--- NOTE | 2018-10-01 22:45 | NUR ---
FAMILY CAME, CENTRAL LINE AND MCKNIGHT CATHETER TAKEN OUT.
--- NOTE | 2018-10-01 23:45 | NUR ---
CUSTOMER SERVICE ADMINISTRATOR JORDON HOBSON OF [facility] CAME TO TAKE THE BODY. FAMILY AT THE BEDSIDE.
--- NOTE | 2018-10-01 23:50 | NUR ---
RELEASING PAPER SIGNED WITH CHARGE NURSE
--- NOTE | 2018-10-02 00:20 | NUR ---
BODY OF PATIENT TAKEN TO MORTUARY VEHICLE BY MORTUARY INTERNATIONAL SALES REPRESENTATIVE ACCOMPANIED BY FAMILY. HEEL SCOURER CARLOS ENRIQUE ROSALES. Addendum: 10/02/18 at 0027 by Gilda Chacon LVN CORRECTION: TAKEN TO [facility] BY INTERNATIONAL SALES REPRESENTATIVE.
[2018-10-03 06:24] LABS: LD1 FRACTION 11 % (17-32); LD2 FRACTION 21 % (25-40); LD3 FRACTION 17 % (17-27); LD4 FRACTION 15 % (5-13)
[2018-10-03 16:36] LABS: LD5 FRACTION 36 % (4-20)
== END 2018-10-01 15:20 | disposition expired | DRG 853 ==
LOC: MED 13:42 → MTU 16:01 → MED 16:30 → MMU 09-24 08:52 → MIC 09-26 14:56 → MTU 10-01 15:05
PROVIDERS: ADMIT General Practice; ATTEND General Practice
PROC: 0W3P8ZZ Control Bleeding in Gastrointestinal Tract, Via Natural or Artificial Opening Endoscopic (ICD-10-PCS; 2018-09-24)
PROC: 0DJD8ZZ Inspection of Lower Intestinal Tract, Via Natural or Artificial Opening Endoscopic (ICD-10-PCS; 2018-09-25)
PROC: 0DU907Z Supplement Duodenum with Autologous Tissue Substitute, Open Approach (ICD-10-PCS; 2018-09-26)
PROC: 5A1955Z Respiratory Ventilation, Greater than 96 Consecutive Hours (ICD-10-PCS; 2018-09-26)
PROC: 0BH17EZ Insertion of Endotracheal Airway into Trachea, Via Natural or Artificial Opening (ICD-10-PCS; 2018-09-26)
PROC: 0DQ90ZZ Repair Duodenum, Open Approach (ICD-10-PCS; 2018-09-26)
PROC: 3E1M38Z Irrigation of Peritoneal Cavity using Irrigating Substance, Percutaneous Approach (ICD-10-PCS; 2018-09-26)
PROC: 30233N1 Transfusion of Nonautologous Red Blood Cells into Peripheral Vein, Percutaneous Approach (ICD-10-PCS; principal; 2018-09-26 16:00)
PROC: 0D9670Z Drainage of Stomach with Drainage Device, Via Natural or Artificial Opening (ICD-10-PCS; 2018-09-28)
DX: A41.9 Sepsis, unspecified organism (principal); E43 Unspecified severe protein-calorie malnutrition; K65.0 Generalized (acute) peritonitis; G93.41 Metabolic encephalopathy; J18.9 Pneumonia, unspecified organism; J96.21 Acute and chronic respiratory failure with hypoxia; K26.5 Chronic or unspecified duodenal ulcer with perforation; R65.21 Severe sepsis with septic shock; N17.0 Acute kidney failure with tubular necrosis; D62 Acute posthemorrhagic anemia; N39.0 Urinary tract infection, site not specified; J44.0 Chronic obstructive pulmonary disease with (acute) lower respiratory infection; J90 Pleural effusion, not elsewhere classified; N17.9 Acute kidney failure, unspecified; G90.8 Other disorders of autonomic nervous system; E86.0 Dehydration; E83.39 Other disorders of phosphorus metabolism; E87.6 Hypokalemia; E83.42 Hypomagnesemia; E78.00 Pure hypercholesterolemia, unspecified; E78.5 Hyperlipidemia, unspecified; E11.22 Type 2 diabetes mellitus with diabetic chronic kidney disease; F17.200 Nicotine dependence, unspecified, uncomplicated; I12.9 Hypertensive chronic kidney disease with stage 1 through stage 4 chronic kidney disease, or unspecified chronic kidney disease; E83.51 Hypocalcemia; I46.9 Cardiac arrest, cause unspecified; I48.91 Unspecified atrial fibrillation; K31.819 Angiodysplasia of stomach and duodenum without bleeding; K64.8 Other hemorrhoids; K66.8 Other specified disorders of peritoneum; M19.90 Unspecified osteoarthritis, unspecified site; N18.9 Chronic kidney disease, unspecified; Z66 Do not resuscitate; Z87.11 Personal history of peptic ulcer disease; Z88.8 Allergy status to other drugs, medicaments and biological substances; Z68.29 Body mass index [BMI] 29.0-29.9, adult
CPT/HCPCS: 36415; 36600; 70450; 71045; 74018; 74021; 76700; 76770; 80048; 80053; 80076; 80202; 80305; 81001; 82040; 82150; 82272; 82533; 82607; 82728; 82746; 82803; 82948; 83010; 83540; 83605; 83625; 83690; 83735; 83880; 84100; 84436; 84439; 84443; 84479; 84484; 85018; 85025; 85045; 85610; 85730; 86886; 86900; 86901; 86920; 87040; 87070; 87075; 87081; 87086; 87205; 89220; 93005; 93880; 94002; 94003; 94640; 96361; 96365; 97110; 97116; 97161-GP; 97530; 99285; A9153; C9113; J0330; J0690; J0696; J1160; J1170; J1200; J1450; J1644; J1720; J1815; J1885; J1940; J2060; J2250; J2270; J2370; J2405; J2543; J2704; J3010; J3370; J3411; J3475; J3490; J7030; J7042; J7060; J7620; J8597; P9016; P9046; Q0092; Q0163; Q9967